=== PATIENT | male | born 1965 | race American Indian/Alaskan Native ===

== ENCOUNTER 2021-01-17 22:53 | Inpatient (IN) | payer OTHER ==
[2021-01-17] MEDS ORDERED: FUROSEMIDE 40 MG/4 ML INJ IV ONE (23:00)
[2021-01-17] MEDS ORDERED: MORPHINE 4 MG/1 ML INJ IV ONE (23:01)
[2021-01-17] MEDS ORDERED: ONDANSETRON 4 MG/2 ML INJ IV ONE (23:01)
--- NOTE | 2021-01-17 23:09 | Emergency Department Report ---
ED Shortness of Breath HPI - General Stated Complaint: RESPIRATORY DISTRESS Time Seen by Provider: 01/17/21 22:59 Source: EMS - History of Present Illness Initial Comments: Patient is 55-year-old male with history of hypertension. Patient brought to the emergency room via EMS from home for evaluation of acute respiratory distre ss. Patient symptoms started with shortness of breath. EMS stated that patient initial oxygen saturation was 95% and it dropped to 85%. Patient found to have a blood pressure of 270/180. Patient received nitroglycerin by EMS. Upon arrival to the ER patient in significant respiratory distress. Patient oxygen saturation is 72% on room air. Patient started on BiPAP, Lasix, morphine and started on nitroglycerin drip. MD Complaint: shortness of breath, chest pain -: Sudden, This afternoon - Related Data Home Medications Medication Instructions Recorded Confirmed Last Taken Ascorbic Acid [Vitamin C with Lexy 500 mg PO 2XW 01/18/21 01/18/21 Unknown Hips] Kzovtsm-Bbcfqgbij-Ddfm Tablet 1 tab PO 3XW 01/18/21 01/18/21 Unknown Cholecalciferol Vit D3 1,000 units PO 2XW 01/18/21 01/18/21 Unknown Ferrous Sulfate 99 mg PO 3XW 01/18/21 01/18/21 Unknown Magnesium 250 mg PO 2XW 01/18/21 01/18/21 Unknown Potassium 1 tab PO 3XW 01/18/21 01/18/21 Unknown Allergies Allergy/AdvReac Type Severity Reaction Status Date / Time No Known Allergies Allergy Verified 01/17/21 23:48 ED Review of Systems ROS: Stated complaint: RESPIRATORY DISTRESS Other details as noted in HPI Comment: All other systems reviewed and negative Constitutional: denies: chills, fever Respiratory: orthopnea, shortness of breath, SOB with exertion, SOB at rest. denies: cough, wheezing Cardiovascular: chest pain. denies: palpitations Gastrointestinal: denies: abdominal pain, nausea, vomiting Musculoskeletal: denies: back pain Neurological: confusion. denies: headache, weakness, numbness, paresthesias ED Past Medical Hx - Medications Home Medications: Home Medications Medication Instructions Recorded Confirmed Last Taken Type Ascorbic Acid [Vitamin C with Lexy 500 mg PO 2XW 01/18/21 01/18/21 Unknown History Hips] Ysokktz-Xeezvnvuy-Mkvq Tablet 1 tab PO 3XW 01/18/21 01/18/21 Unknown History Cholecalciferol Vit D3 1,000 units PO 2XW 01/18/21 01/18/21 Unknown History Ferrous Sulfate 99 mg PO 3XW 01/18/21 01/18/21 Unknown History Magnesium 250 mg PO 2XW 01/18/21 01/18/21 Unknown History Potassium 1 tab PO 3XW 01/18/21 01/18/21 Unknown History ED Physical Exam - General General appearance: alert, in distress (Severe respiratory distress, tachypneic with respiratory rate of 38) - Head Head exam: Present: atraumatic, normocephalic, normal inspection - Eye Eye exam: Present: normal appearance, PERRL - ENT ENT exam: Present: normal exam, normal orophraynx, mucous membranes moist - Neck Neck exam: Present: normal inspection, full ROM. Absent: tenderness, meningismus - Respiratory Respiratory exam: Present: respiratory distress, rales, accessory muscle use, decreased breath sounds. Absent: wheezes, rhonchi, stridor, prolonged expiratory - Cardiovascular Cardiovascular Exam: Present: tachycardia - GI/Abdominal GI/Abdominal exam: Present: soft, normal bowel sounds. Absent: distended, tenderness, guarding, rebound, rigid, organomegaly, mass, bruit, pulsatile mass, hernia - Back Exam Back exam: Present: normal inspection, full ROM. Absent: CVA tenderness (R), CVA tenderness (L) - Neurological Exam Neurological exam: Present: alert, altered - Psychiatric Psychiatric exam: Present: normal mood - Skin Skin exam: Present: warm, intact, normal color ED Course Vital Signs 01/17/21 01/17/21 01/17/21 23:00 23:02 23:05 Temperature 97.9 F Pulse Rate 157 H 155 H 130 H Respiratory 37 H 31 H Rate Blood Pressure 196/127 O2 Sat by Pulse 94 84 Oximetry 01/17/21 01/18/21 01/18/21 23:30 00:00 00:31 Temperature Pulse Rate 101 H Respiratory 28 H 29 H 23 Rate Blood Pressure 196/127 154/107 136/77 O2 Sat by Pulse 99 99 96 Oximetry 01/18/21 01/18/21 01/18/21 00:51 01:01 01:10 Temperature Pulse Rate 94 H Respiratory 23 22 25 H Rate Blood Pressure 131/74 141/78 139/73 O2 Sat by Pulse 94 95 99 Oximetry 01/18/21 01/18/21 01/18/21 01:21 01:31 01:41 Temperature Pulse Rate Respiratory 21 22 20 Rate Blood Pressure 139/73 129/76 141/65 O2 Sat by Pulse 96 98 96 Oximetry 01/18/21 01:51 Temperature Pulse Rate Respiratory 21 Rate Blood Pressure 141/65 O2 Sat by Pulse 98 Oximetry ED Medical Decision Making - Lab Data Result diagrams: 01/18/21 01:57 01/18/21 08:11 - EKG Data -: EKG Interpreted by Nv EKG shows normal: sinus rhythm Rate: tachycardia - EKG Data Interpretation: no acute changes - Radiology Data Radiology results: report reviewed - Medical Decision Making Patient is 55-year-old male with history of hypertension. Patient brought to the emergency room via EMS from home for evaluation of acute respiratory distress. Patient symptoms started with shortness of breath. EMS stated that patient initial oxygen saturation was 95% and it dropped to 85%. Patient found to have a blood pressure of 270/180. Patient received nitroglycerin by EMS. Upon arrival to the ER patient in significant respiratory distress. Patient oxygen saturation is 72% on room air. Patient started on BiPAP, Lasix, morphine and started on nitroglycerin drip. Patient blood pressure improved significantly to 157/102. Chest x-ray showed bilateral lower lobe consolidation concerning for pneumonia. Patient received Z osyn. Patient stated that he is feeling better. I discussed the patient with , he agreed to admit the patient to medical service for further management. Critical Care Time: Yes Critical care time in (mins) excluding proc time.: 30 Critical care attestation.: If time is entered above; I have spent that time in minutes in the direct care of this critically ill patient, excluding procedure time. ED Disposition Clinical Impression: Acute respiratory failure, New onset of congestive heart failure, Hypertensive emergency, Bilateral pneumonia Disposition: -09 OP ADMIT IP TO THIS HOSP Is pt being admited?: Yes Condition: Stable
[2021-01-17 23:21] LABS: Hematocrit 48.8 % (35.5-45.6); Hemoglobin 16.2 gm/dl (11.8-15.2); Mean Corpuscular HGB Conc 33 % (32-34); Mean Corpuscular Volume 87 fl (84-94)
[2021-01-17 23:22] LABS: Platelet Count 206 K/mm3 (140-440)
[2021-01-17 23:34] LABS: INR 0.99 (0.87-1.13)
[2021-01-17 23:35] LABS: Partial Thromboplastin Time 24.7 Sec. (24.2-36.6)
--- NOTE | 2021-01-17 23:41 | XRay Report ---
. XR chest 1V ap INDICATION / CLINICAL INFORMATION: Dyspnea COMPARISON: None available. FINDINGS: SUPPORT DEVICES: None. HEART / MEDIASTINUM: No significant abnormality. LUNGS / PLEURA : Significant bilateral lower lung zone consolidation. Costophrenic sulci are sharp. N o pneumothorax. ADDITIONAL FINDINGS: No significant additional findings. IMPRESSION: 1. Bilateral consolidation concerning for pneumonia. Signer Name: Shay Dorado MD Signed: 01/17/2021 11:37 PM Workstation Name: [id number]
[2021-01-17] MEDS ORDERED: NITROGLYCERIN DRIP 50 MG/250 ML BOTTLE IV SCH (23:45)
[2021-01-17] MEDS ORDERED: PIPERACILLIN/TAZOBACTAM 3.375 3.375 GM/50 ML BAG IV ONE (23:48)
[2021-01-17 23:57] LABS: Calcium 9.3 mg/dL (8.4-10.2)
[2021-01-18 00:01] LABS: Albumin 4.7 g/dL (3.9-5); Bilirubin,Direct 0.2 mg/dL (0-0.2)
[2021-01-18] MEDS ORDERED: MAGNESIUM HYDROXIDE (MOM) ORAL LIQD UDC PO PRN (00:38)
[2021-01-18] MEDS ORDERED: MORPHINE 2 MG/1 ML INJ IV PRN ×2 (00:38)
[2021-01-18] MEDS ORDERED: ONDANSETRON 4 MG/2 ML INJ IV PRN (00:38)
[2021-01-18 00:41] LABS: Chol/HDL Ratio 3.93 %
[2021-01-18] MEDS ORDERED: POTASSIUM CHLORIDE 10 MEQ 10 MEQ/100 ML BAG IV ONE ×2 (00:52→08:00)
--- NOTE | 2021-01-18 00:52 | History and Physical Report ---
History of Present Illness Date of examination: 01/18/21 Date of admission: 01/18/21 00:34 Chief complaint: Respiratory distress History of present illness: 55-year-old male with known history of hypertension brought into the emergency room by EMS today for acute onset of shortness of breath. Upon assessment, initial oxygen saturation was said to be about 95% or later dropped to 85%. Blood pressure was 270/180 mmHg. She was then given sublingual nitroglycerin by EMS. Upon arrival in the emergency room patient was in severe respiratory distress and oxygen saturation was about 72% on room air. Patient was then started on BiPAP, given Lasix, IV morphine and nitroglycerin drip. Patient indicates that he was diagnosed with hypertension sometime in July but has not been on any medication. He denies any headache or dizziness, denies any diaphoresis. Patient denies any chest pain, no nausea or vomiting and no abdominal pain. He has had some mild cough which is nonproductive. He denies any sick contacts and no recent travel. Denies any contact with anyone with COVID-19. Patient indicates that he has been fully vaccinated against COVID-19. He denies any illicit drug use and denies any history of tobacco abuse. Work-up in the emergency room, labs were significant for leukocytosis of 15.9, hypokalemia of 3.3, lactic acid of 5.1, troponin was slightly bumped at 0.039, lipid profile was grossly abnormal. Creatinine was also elevated at 1.8. Past History Past Medical History: hypertension Past Surgical History: No surgical history, Other (Colonoscopy in July with polyp removal.) Social history: no significant social history Family history: no significant family history Medications and Allergies Allergies Allergy/AdvReac Type Severity Reaction Status Date / Time No Known Allergies Allergy Verified 01/17/21 23:48 Active Meds: Active Medications Enoxaparin Sodium (Enoxaparin 40 Mg/0.4 Ml Inj) 40 mg SUB-Q QDAY@2200 ANAIS; Protocol Furosemide (Furosemide 40 Mg/4 Ml Inj) 40 mg IV BID@0600,1800 ANAIS Nitroglycerin/Dextrose (Tridil Drip 50mg/250ml) 50 mg in 250 mls @ 3 mls/hr IV TITR ANAIS; Protocol Last Titration: 01/17/21 23:48 Dose: 20 mcg/min, 6 mls/hr Documented by: Ceftriaxone Sodium (Rocephin/Ns 2 Gm/100 Ml) 2 gm in 100 mls @ 200 mls/hr IV Q24H ANAIS; Protocol Azithromycin (Zithromax/Ns) 500 mg in 250 mls @ 250 mls/hr IV Q24H ANAIS; Protocol Magnesium Hydroxide (Magnesium Hydroxide (Mom) Oral Liqd Udc) 30 ml PO Q4H PRN PRN Reason: Constipation Morphine Sulfate (Morphine 2 Mg/1 Ml Inj) 2 mg IV Q4H PRN PRN Reason: Pain, Moderate (4-6) Morphine Sulfate (Morphine 2 Mg/1 Ml Inj) 2 mg IV Q5MIN PRN PRN Reason: Chest Pain unrelieved by NTG Ondansetron HCl (Ondansetron 4 Mg/2 Ml Inj) 4 mg IV Q8H PRN PRN Reason: Nausea And Vomiting Sodium Chloride (Sodium Chloride 0.9% 10 Ml Flush Syringe) 10 ml IV BID ANAIS Sodium Chloride (Sodium Chloride 0.9% 10 Ml Flush Syringe) 10 ml IV PRN PRN PRN Reason: LINE FLUSH Review of Systems Constitutional: no fever, no chills Ears, nose, mouth and throat: no nasal congestion, no sore throat Cardiovascular: no chest pain, no palpitations Respiratory: shortness of breath, no cough, no wheezing Gastrointestinal: no abdominal pain, no nausea, no vomiting, no diarrhea Genitourinary Male: no dysuria, no hematuria, no nocturia Musculoskeletal: no neck pain, no low back pain Integumentary: no rash, no pruritis Neurological: no headaches, no confusion Psychiatric: no anxiety, no depression Endocrine: no polydipsia, no polyuria, no nocturia Exam - Constitutional Vitals: Temp Pulse Resp BP Pulse Ox 97.9 F 130 H 37 H 196/127 94 01/17/21 23:05 01/17/21 23:05 01/17/21 23:00 01/17/21 23:05 01/17/21 23:00 General appearance: Present: mild distress, well-nourished - EENT Eyes: Present: PERRL, EOM intact. Absent: scleral icterus ENT: hearing intact, clear oral mucosa, dentition normal - Neck Neck: Present: supple, normal ROM - Respiratory Respiratory effort: normal Respiratory: bilateral: rales (Few rales in bases.) - Cardiovascular Rhythm: regular Heart Sounds: Present: S1 & S2. Absent: systolic murmur, diastolic murmur - Extremities Extremities: no ischemia, pulses intact, pulses symmetrical, No edema, normal temperature, normal color, Full ROM Peripheral Pulses: within normal limits - Abdominal General gastrointestinal: Present: soft, non-tender, non-distended, normal bowel sounds. Absent: mass - Integumentary Integumentary: Present: clear, warm, dry. Absent: rash - Musculoskeletal Musculoskeletal: strength equal bilaterally - Psychiatric Psychiatric: appropriate mood/affect, intact judgment & insight, memory intact, cooperative - Neurologic Neurologic: CNII-XII intact, no focal deficits, moves all extremities HEART Score - HEART Score Troponin: Troponin T 0.039 ng/mL (0.00-0.029) H 01/17/21 23:09 Results - Labs CBC & Chem 7: 01/17/21 23:09 01/17/21 23:09 Labs: Abnormal lab results 01/17/21 01/17/21 01/17/21 Range/Units 23:09 23:09 23:09 WBC 15.9 H (4.5-11.0) K/mm3 RBC 5.60 H (3.65-5.03) M/mm3 Hgb 16.2 H (11.8-15.2) gm/dl Hct 48.8 H (35.5-45.6) % RDW 16.0 H (13.2-15.2) % Potassium 3.3 L (3.6-5.0) mmol/L Carbon Dioxide 21 L (22-30) mmol/L BUN 21 H (9-20) mg/dL Creatinine 1.8 H (0.8-1.3) mg/dL Glucose 238 H (75-100) mg/dL Lactic Acid 5.10 H* (0.7-2.0) mmol/L AST (5-40) units/L Troponin T 0.039 H (0.00-0.029) ng/mL NT-Pro-B Natriuret Pep (0-900) pg/mL Triglycerides 355 H (2-149) mg/dL Cholesterol 240 H (50-199) mg/dL LDL Cholesterol Direct 137 H (50-130) mg/dL HDL Cholesterol 61 H (40-59) mg/dL 01/17/21 01/17/21 01/18/21 Range/Units 23:09 23:09 00:06 WBC (4.5-11.0) K/mm3 RBC (3.65-5.03) M/mm3 Hgb (11.8-15.2) gm/dl Hct (35.5-45.6) % RDW (13.2-15.2) % Potassium (3.6-5.0) mmol/L Carbon Dioxide (22-30) mmol/L BUN (9-20) mg/dL Creatinine (0.8-1.3) mg/dL Glucose (75-100) mg/dL Lactic Acid 2.20 H* (0.7-2.0) mmol/L AST 47 H (5-40) units/L Troponin T (0.00-0.029) ng/mL NT-Pro-B Natriuret Pep 4538 H (0-900) pg/mL Triglycerides (2-149) mg/dL Cholesterol (50-199) mg/dL LDL Cholesterol Direct (50-130) mg/dL HDL Cholesterol (40-59) mg/dL Assessment and Plan - Patient Problems (1) Hypertensive emergency Current Visit: Yes Status: Acute Plan to address problem: Patient admitted into the intensive care unit and started on nitroglycerin drip. We will monitor vitals closely. (2) Acute respiratory failure Current Visit: Yes Status: Acute Plan to address problem: Possibly secondary to new onset congestive heart failure. Patient currently on BiPAP. We will keep oxygen saturation greater equal to 94%. We await further evaluation by freight inspector. (3) New onset of congestive heart failure Current Visit: Yes Status: Acute Plan to address problem: We will monitor daily weights and also monitor inputs and output. Patient scheduled for echocardiogram. Consult placed to cardiology for evaluation. (4) Hypokalemia Current Visit: Yes Status: Acute Plan to address problem: We will replete potassium and monitor chemistry. (5) Bilateral pneumonia Current Visit: Yes Status: Acute Plan to address problem: Patient placed on empiric IV antibiotics. Will await culture results. (6) Elevated troponin Current Visit: Yes Status: Acute Plan to address problem: Patient has denied any chest pain. Possibly troponin leak. We will trend cardiac enzymes. We will await further evaluation by cardiology. (7) Hyperlipidemia Current Visit: Yes Status: Acute Plan to address problem: Dietary consult requested. Meanwhile we will place patient on statin and monitor lipid profile. (8) SCHUYLER (acute kidney injury) Current Visit: Yes Status: Acute Plan to address problem: Baseline creatinine unknown. Consult placed to nephrology for evaluation. Meanwhile we will request a renal ultrasound. (9) DVT prophylaxis Current Visit: Yes Status: Acute Plan to address problem: Patient placed on subcutaneous Lovenox. (10) Full code status Current Visit: Yes Status: Acute Plan to address problem: Patient is full code.
[2021-01-18 01:04] LABS: Total Cells Counted 100
[2021-01-18 01:05] LABS: Giant Platelets Rare; Platelet Clumps Rare; RBC Morphology Normal
[2021-01-18] MEDS ORDERED: traMADol 50 MG TAB PO PRN (01:43)
[2021-01-18] MEDS ORDERED: ACETAMINOPHEN 325 MG TAB PO PRN (01:43)
[2021-01-18 02:11] LABS: Basophils # (Auto) 0.1 K/mm3 (0.0-0.1); Basophils % (Auto) 0.8 % (0.0-1.8); Eosinophils % (Auto) 0.3 % (0.0-4.3); Hemoglobin 14.5 gm/dl (11.8-15.2); Lymphocytes # (Auto) 1.2 K/mm3 (1.2-5.4); Lymphocytes % (Auto) 7.7 % (13.4-35.0); Mean Corpuscular HGB Conc 33 % (32-34); Mean Corpuscular Volume 85 fl (84-94); Monocytes # (Auto) 0.9 K/mm3 (0.0-0.8); Monocytes % (Auto) 5.8 % (0.0-7.3); Platelet Count 183 K/mm3 (140-440); Red Blood Count 5.17 M/mm3 (3.65-5.03); Red Cell Distribution Width 15.5 % (13.2-15.2)
[2021-01-18] MEDS ORDERED: MORPHINE 4 MG/1 ML INJ ONE (02:52)
[2021-01-18] MEDS ORDERED: FUROSEMIDE 40 MG/4 ML INJ IV SCH (06:00)
[2021-01-18] MEDS: AZITHROMYCIN/NS 500 MG/250 ML 500 MG/250 ML BAG IV SCH (08:24)
[2021-01-18] MEDS: cefTRIAXone/NS 2 GM/100 ML 2 GM/100 ML BAG IV SCH (08:24)
[2021-01-18 09:45] LABS: Calcium 9.5 mg/dL (8.4-10.2)
[2021-01-18] MEDS: POTASSIUM CHLORIDE ER 20 MEQ TAB PO SCH (10:53)
[2021-01-18] MEDS: ASPIRIN 81 MG TAB CHEW PO SCH (10:53)
--- NOTE | 2021-01-18 12:17 | Consultation ---
History of Present Illness Consult date: 01/18/21 Requesting physician: GAETANO CISNEROS Reason for consult: other (Hypertensive Emergency; Acute Hypoxemicv Respiratory Failure) History of present illness: PULMONARY/CCM CONSULT NOTE (Full dictation # [id number]) Please see dictated notes for full details Past History Past Medical History: hypertension Past Surgical History: No surgical history, Other (Colonoscopy in July with polyp removal.) Social history: no significant social history Family history: no significant family history Medications and Allergies Allergies Allergy/AdvReac Type Severity Reaction Status Date / Time No Known Allergies Allergy Verified 01/17/21 23:48 Home Medications Medication Instructions Recorded Confirmed Last Taken Type Ascorbic Acid [Vitamin C with Lexy 500 mg PO 2XW 01/18/21 01/18/21 Unknown History Hips] Pltezve-Lkrjkvinr-Ukrl Tablet 1 tab PO 3XW 01/18/21 01/18/21 Unknown History Cholecalciferol Vit D3 1,000 units PO 2XW 01/18/21 01/18/21 Unknown History Ferrous Sulfate 99 mg PO 3XW 01/18/21 01/18/21 Unknown History Magnesium 250 mg PO 2XW 01/18/21 01/18/21 Unknown History Potassium 1 tab PO 3XW 01/18/21 01/18/21 Unknown History Active Meds: Active Medications Acetaminophen (Acetaminophen 325 Mg Tab) 650 mg PO Q6H PRN PRN Reason: Pain, Mild (1-3) Aspirin (Aspirin 81 Mg Tab Chew) 81 mg PO QDAY COUNTS INCLUDE 234 BEDS AT THE [facility] Last Admin: 01/18/21 10:53 Dose: 81 mg Documented by: Atorvastatin Calcium (Atorvastatin 40 Mg Tab) 80 mg PO QHS ANAIS Enoxaparin Sodium (Enoxaparin 40 Mg/0.4 Ml Inj) 40 mg SUB-Q QDAY@2200 COUNTS INCLUDE 234 BEDS AT THE [facility]; Protocol Furosemide (Furosemide 40 Mg/4 Ml Inj) 40 mg IV BID@0600,1800 COUNTS INCLUDE 234 BEDS AT THE [facility] Last Admin: 01/18/21 06:22 Dose: 40 mg Documented by: Nitroglycerin/Dextrose (Tridil Drip 50mg/250ml) 50 mg in 250 mls @ 3 mls/hr IV TITR COUNTS INCLUDE 234 BEDS AT THE [facility]; Protocol Last Titration: 01/18/21 07:00 Dose: 0 mcg/min, 0 mls/hr Documented by: Ceftriaxone Sodium (Rocephin/Ns 2 Gm/100 Ml) 2 gm in 100 mls @ 200 mls/hr IV Q24H COUNTS INCLUDE 234 BEDS AT THE [facility]; Protocol Last Infusion: 01/18/21 09:00 Dose: Infused Documented by: Azithromycin (Zithromax/Ns) 500 mg in 250 mls @ 250 mls/hr IV Q24H COUNTS INCLUDE 234 BEDS AT THE [facility]; Pro tocol Last Infusion: 01/18/21 09:35 Dose: Infused Documented by: Magnesium Hydroxide (Magnesium Hydroxide (Mom) Oral Liqd Udc) 30 ml PO Q4H PRN PRN Reason: Constipation Morphine Sulfate (Morphine 2 Mg/1 Ml Inj) 2 mg IV Q4H PRN PRN Reason: Pain, Moderate (4-6) Morphine Sulfate (Morphine 2 Mg/1 Ml Inj) 2 mg IV Q5MIN PRN PRN Reason: Chest Pain unrelieved by NTG Ondansetron HCl (Ondansetron 4 Mg/2 Ml Inj) 4 mg IV Q8H PRN PRN Reason: Nausea And Vomiting Potassium Chloride (Potassium Chloride Er 20 Meq Tab) 20 meq PO QDAY COUNTS INCLUDE 234 BEDS AT THE [facility] Last Admin: 01/18/21 10:53 Dose: 20 meq Documented by: Sodium Chloride (Sodium Chloride 0.9% 10 Ml Flush Syringe) 10 ml IV BID COUNTS INCLUDE 234 BEDS AT THE [facility] Last Admin: 01/18/21 11:28 Dose: 10 ml Documented by: Sodium Chloride (Sodium Chloride 0.9% 10 Ml Flush Syringe) 10 ml IV PRN PRN PRN Reason: LINE FLUSH Tramadol HCl (Tramadol 50 Mg Tab) 50 mg PO Q6H PRN PRN Reason: Pain, Moderate (4-6) Physical Examination Vital signs: Vital Signs Pulse Resp Pulse Ox 157 H 37 H 94 01/17/21 23:00 01/17/21 23:00 01/17/21 23:00 Results - Laboratory Findings CBC and BMP: 01/18/21 01:57 01/18/21 08:11 PT/INR, D-dimer PT 13.6 Sec. (12.2-14.9) 01/17/21 23:09 INR 0.99 (0.87-1.13) 01/17/21 23:09 Abnormal lab findings: Abnormal Labs 01/17/21 01/17/21 01/17/21 23:09 23:09 23:09 WBC 15.9 H RBC 5.60 H Hgb 16.2 H Hct 48.8 H RDW 16.0 H Lymph % (Auto) [place] # (Auto) Seg Neutrophils % Lymphocytes % (Manual) 44.0 H Seg Neutrophils # Lymphocytes # (Manual) 7.0 H Eosinophils # (Manual) 0.6 H Basophils # (Manual) 0.2 H Potassium 3.3 L Carbon Dioxide 21 L BUN 21 H Creatinine 1.8 H Glucose 238 H Lactic Acid 5.10 H* AST Troponin T 0.039 H NT-Pro-B Natriuret Pep Triglycerides 355 H Cholesterol 240 H LDL Cholesterol Direct 137 H HDL Cholesterol 61 H 01/17/21 01/17/21 01/18/21 23:09 23:09 00:06 WBC RBC Hgb Hct RDW Lymph % (Auto) [place] # (Auto) Seg Neutrophils % Lymphocytes % (Manual) Seg Neutrophils # Lymphocytes # (Manual) Eosinophils # (Manual) Basophils # (Manual) Potassium Carbon Dioxide BUN Creatinine Glucose Lactic Acid 2.20 H* AST 47 H Troponin T NT-Pro-B Natriuret Pep 4538 H Triglycerides Cholesterol LDL Cholesterol Direct HDL Cholesterol 01/18/21 01/18/21 01/18/21 01:57 01:57 01:57 WBC 15.2 H RBC 5.17 H Hgb Hct RDW 15.5 H Lymph % (Auto) 7.7 L [place] # (Auto) 0.9 H Seg Neutrophils % 85.4 H Lymphocytes % (Manual) Seg Neutrophils # 13.0 H Lymphocytes # (Manual) Eosinophils # (Manual) Basophils # (Manual) Potassium Carbon Dioxide BUN Creatinine Glucose Lactic Acid 2.10 H* AST Troponin T 0.083 H D NT-Pro-B Natriuret Pep Triglycerides Cholesterol LDL Cholesterol Direct HDL Cholesterol 01/18/21 01/18/21 01/18/21 08:11 08:11 08:11 WBC RBC Hgb Hct RDW Lymph % (Auto) [place] # (Auto) Seg Neutrophils % Lymphocytes % (Manual) Seg Neutrophils # Lymphocytes # (Manual) Eosinophils # (Manual) Basophils # (Manual) Potassium 3.5 L Carbon Dioxide BUN 25 H Creatinine 1.8 H Glucose Lactic Acid 2.50 H* AST Troponin T 0.065 H D NT-Pro-B Natriuret Pep Triglycerides Cholesterol LDL Cholesterol Direct HDL Cholesterol
--- NOTE | 2021-01-18 12:36 | Ultrasound Report ---
ULTRASOUND RENAL INDICATION / CLINICAL INFORMATION: SCHUYLER. ARF. COMPARISON: None available. FINDINGS: RIGHT KIDNEY: Length = 11.3 cm. - Echogenicity: Normal. - Cortical Thickness: Normal. - Hydronephrosis: None. - Cyst / Mass: None. - Stones: None seen. LEFT KIDNEY: Length = 10.6 cm. - Echogenicity: Normal. - Cortical Thickness: Normal. - Hydronephrosis: None. - Cyst / Mass: None. - Stones: None seen. URINARY BLADDER: No significant abnormality. FREE FLUID: None. ADDITIONAL FINDINGS: None. IMPRESSION: 1. No significant abnormality of the kidneys or urinary bladder. Scribed by: Tamar Mcdermott RDMS, RVT Scribed: 01/18/2021 10:14 AM I have reviewed the images, agree with this report, and edited this report as needed. Signer Name: Eagle Andino MD Signed: 01/18/2021 12:32 PM Workstation Name: [id number]
--- NOTE | 2021-01-18 12:43 | Event Note ---
Date: 01/18/21 Patient seen and examined This is the second visit after midnight Vitals noted and appears to be stable Patient denies any chest pain but has short of breath Appears in no acute distress, S1-S2 positive, bilateral respiratory rhonchi This is an 55-year-old male with known history of hypertension and noncompliant with his medications brought into the emergency room by EMS for acute onset of shortness of breath. Blood pressure was 270/180 mmHg. Upon arrival in the emergency room patient was in severe respiratory distress and oxygen saturation was about 72% on room air. Patient was then started on BiPAP, given Lasix, IV morphine and nitroglycerin drip. He has been fully vaccinated against COVID-19. labs were significant for leukocytosis of 15.9, hypokalemia of 3.3, lactic acid of 5.1, troponin was slightly bumped at 0.039, lipid profile was grossly abnormal. Creatinine was also elevated at 1.8. Continue current management and plan as dictated in the HPI Patient is off nitroglycerin drip now, continue IV Lasix, wait for abdominal ultrasound and 2D echocardiogram report Continue to follow BMP, transfer to telemetry, follow cardiology and nephrology recommendations It took me about 28 minutes to reevaluate and reasses this patient, discussed with RN/CM, review medical documents, lab results, imaging, medication list and placing order.
[2021-01-18] MEDS ORDERED: amLODIPine 10 MG TAB PO SCH (13:00)
[2021-01-18] MEDS: HEPARIN 5,000 UNIT/1 ML VIAL SUB-Q SCH ×2 (13:17→22:08)
--- NOTE | 2021-01-18 15:37 | Consultation ---
History of Present Illness Consult date: 01/18/21 Requesting physician: GAETANO CISNEROS Consult reason: congestive heart failure, hypertension History of present illness: This patient is a 55-year-old male with a significant history of hypertension. He is previously unknown to our practice. Patient presents to [facility] ER via EMS for hypertensive emergency and respiratory distress. EMS reports patient was found and severe respiratory distress with initial O2 sat 72% and reported blood pressure of 270/180. Patient was subsequently initiated on CPAP and NTG gtt. cardiology is consulted for hypertension and elevated troponins. At time of interview hypertension is significantly improved and patient denies any chest pain, shortness of breath, weakness, dizziness, abdominal pain, N/V/D, recent illness or known exposures. Patient also reports he is COVID-19 vaccinated. He is not currently followed by cardiology nor PCP. Past History Past Medical History: hypertension, other (See HPI) Past Surgical History: No surgical history, Other (Colonoscopy in July with polyp removal.) Social history: no significant social history Family history: no significant family history Medications and Allergies Allergies Allergy/AdvReac Type Severity Reaction Status Date / Time No Known Allergies Allergy Verified 01/17/21 23:48 Home Medications Medication Instructions Recorded Confirmed Last Taken Type Ascorbic Acid [Vitamin C with Lexy 500 mg PO 2XW 01/18/21 01/18/21 Unknown History Hips] [id number] Tablet 1 tab PO 3XW 01/18/21 01/18/21 Unknown History Cholecalciferol Vit D3 1,000 units PO 2XW 01/18/21 01/18/21 Unknown History Ferrous Sulfate 99 mg PO 3XW 01/18/21 01/18/21 Unknown History Magnesium 250 mg PO 2XW 01/18/21 01/18/21 Unknown History Potassium 1 tab PO 3XW 01/18/21 01/18/21 Unknown History Active Meds: Active Medications Acetaminophen (Acetaminophen 325 Mg Tab) 650 mg PO Q6H PRN PRN Reason: Pain, Mild (1-3) Amlodipine Besylate (Amlodipine 10 Mg Tab) 10 mg PO QDAY [facility] Last Admin: 01/18/21 13:16 Dose: 10 mg Documented by: Aspirin (Aspirin 81 Mg Tab Chew) 81 mg PO QDAY [facility] Last Admin: 01/18/21 10:53 Dose: 81 mg Documented by: Atorvastatin Calcium (Atorvastatin 40 Mg Tab) 80 mg PO QHS [facility] Famotidine (Famotidine 20 Mg Tab) 20 mg PO QHS [facility] Heparin Sodium (Porcine) (Heparin 5,000 Unit/1 Ml Vial) 5,000 unit SUB-Q Q8HR [facility] Last Admin: 01/18/21 13:17 Dose: 5,000 unit Documented by: Nitroglycerin/Dextrose (Tridil Drip 50mg/250ml) 50 mg in 250 mls @ 3 mls/hr IV TITR [facility]; Protocol Last Titration: 01/18/21 07:00 Dose: 0 mcg/min, 0 mls/hr Documented by: Ceftriaxone Sodium (Rocephin/Ns 2 Gm/100 Ml) 2 gm in 100 mls @ 200 mls/hr IV Q24H [facility]; Protocol Last Infusion: 01/18/21 09:00 Dose: Infused Documented by: Azithromycin (Zithromax/Ns) 500 mg in 250 mls @ 250 mls/hr IV Q24H [facility]; Protocol Last Infusion: 01/18/21 09:35 Dose: Infused Documented by: Magnesium Hydroxide (Magnesium Hydroxide (Mom) Oral Liqd Udc) 30 ml PO Q4H PRN PRN Reason: Constipation Morphine Sulfate (Morphine 2 Mg/1 Ml Inj) 2 mg IV Q4H PRN PRN Reason: Pain, Moderate (4-6) Morphine Sulfate (Morphine 2 Mg/1 Ml Inj) 2 mg IV Q5MIN PRN PRN Reason: Chest Pain unrelieved by NTG Ondansetron HCl (Ondansetron 4 Mg/2 Ml Inj) 4 mg IV Q8H PRN PRN Reason: Nausea And Vomiting Potassium Chloride (Potassium Chloride Er 20 Meq Tab) 20 meq PO QDAY [facility] Last Admin: 01/18/21 10:53 Dose: 20 meq Documented by: Sodium Chloride (Sodium Chloride 0.9% 10 Ml Flush Syringe) 10 ml IV BID [facility] Last Admin: 01/18/21 11:28 Dose: 10 ml Documented by: Sodium Chloride (Sodium Chloride 0.9% 10 Ml Flush Syringe) 10 ml IV PRN PRN PRN Reason: LINE FLUSH Tramadol HCl (Tramadol 50 Mg Tab) 50 mg PO Q6H PRN PRN Reason: Pain, Moderate (4-6) Review of Systems Constitutional: no weight loss, no weight gain, no fever, no chills, no sweats Ears, nose, mouth and throat: no ear pain, no ear discharge, no nose pain, no nasal congestion, no nasal discharge Cardiovascular: shortness of breath, high blood pressure, no chest pain, no orthopnea, no palpitations, no rapid/irregular heart beat, no edema, no syncope, no lightheadedness, no dyspnea on exertion, no paroxysmal nocturnal dyspnea, no claudication, no leg edema, no decreased exercise tolerance Respiratory: shortness of breath, no cough, no cough with sputum, no hemoptysis, no dyspnea on exertion Gastrointestinal: no abdominal pain, no nausea, no vomiting, no diarrhea Genitourinary Male: no flank pain Musculoskeletal: no neck stiffness, no neck pain, no shooting arm pain, no arm numbness/tingling, no low back pain, no shooting leg pain Integumentary: no rash, no pruritis, no redness, no sores, no wounds Neurological: no head injury, no paralysis, no weakness, no parathesias, no numbness, no tingling, no seizures, no syncope Psychiatric: no anxiety Endocrine: no cold intolerance, no heat intolerance Hematologic/Lymphatic: no easy bruising, no easy bleeding Allergic/Immunologic: no urticaria Physical Examination Last Vital Signs Temp 98.6 F 01/18/21 12:00 Pulse 84 01/18/21 13:16 Resp 21 01/18/21 13:00 BP 145/83 01/18/21 13:16 Pulse Ox 98 01/18/21 13:00 General appearance: no acute distress HEENT: Positive: PERRL, Normocephaly, Mucus Membranes Moist Neck: Positive: neck supple, trachea midline Cardiac: Positive: Reg Rate and Rhythm, S1/S2 Lungs: Positive: clear to auscultation, Normal Breath Sounds Neuro: Positive: Grossly Intact Abdomen: Positive: Unremarkable, Soft Skin: Negative: Rash, Wound Extremities: Present: upper extr. pulses, lower extr. pulses. Absent: edema Results 01/18/21 01:57 01/18/21 08:11 Cardiac Enzymes 01/17/21 Range/Units 23:09 AST 47 H (5-40) units/L Coagulation 01/17/21 Range/Units 23:09 PT 13.6 (12.2-14.9) Sec. INR 0.99 (0.87-1.13) APTT 24.7 (24.2-36.6) Sec. Lipids 01/17/21 Range/Units 23:09 Triglycerides 355 H (2-149) mg/dL Cholesterol 240 H (50-199) mg/dL HDL Cholesterol 61 H (40-59) mg/dL Cholesterol/HDL Ratio 3.93 % CBC 01/17/21 01/18/21 Range/Units 23:09 01:57 WBC 15.9 H 15.2 H (4.5-11.0) K/mm3 RBC 5.60 H 5.17 H (3.65-5.03) M/mm3 Hgb 16.2 H 14.5 (11.8-15.2) gm/dl Hct 48.8 H 44.0 (35.5-45.6) % Plt Count 206 183 (140-440) K/mm3 Lymph # (Auto) Director Print 1.2 [place] # (Auto) 0.9 H (0.0-0.8) K/mm3 Eos # (Auto) 0.0 (0.0-0.4) K/mm3 Baso # (Auto) 0.1 (0.0-0.1) K/mm3 Comprehensive Metabolic Panel 01/17/21 01/17/21 01/18/21 Range/Units 23:09 23:09 08:11 Sodium 140 143 (137-145) mmol/L Potassium 3.3 L 3.5 L (3.6-5.0) mmol/L Chloride 99.7 100.7 (98-107) mmol/L Carbon Dioxide 21 L 27 (22-30) mmol/L BUN 21 H 25 H (9-20) mg/dL Creatinine 1.8 H 1.8 H (0.8-1.3) mg/dL Glucose 238 H 98 (75-100) mg/dL Calcium 9.3 9.5 (8.4-10.2) mg/dL Direct Bilirubin 0.2 (0-0.2) mg/dL Indirect Bilirubin 0.3 mg/dL AST 47 H (5-40) units/L ALT 36 (7-56) units/L Alkaline Phosphatase 104 (35-129) units/L Total Protein 7.4 (6.3-8.2) g/dL Albumin 4.7 (3.9-5) g/dL - Imaging and Cardiology Echo: pending EKG: report reviewed, image reviewed EKG interpretations - Telemetry EKG Rhythm: SVT - EKG Sinus rhythms and dysrhythmias: sinus rhythm Assessment and Plan Hypertensive emergency * Patient is currently normotensive * Renal ultrasound is normal Acute respiratory failure in setting of acute HFrEF * Currently maintaining SPO2 with supplemental oxygen via nasal cannula 4 L/min * Echocardiogram is pending * GDMT. No JAYCEE/ARB due to SCHUYLER * Lasix 40 mg IV daily. Strict I/O's. * Optimize antihypertensive regimen: Discontinue amlodipine, initiate Coreg 12.5 mg twice daily, initiate hydralazine 10 mg 3 times daily. Elevated troponin * Troponins are elevated, subacute and nonspecific. Continue to trend CE's SCHUYLER * No ACEI/ARB in setting of SCHUYLER. Avoid nephrotoxic agents We will follow This patient was seen in conjunction with Dr Campa who agrees with this ass essment and plan of care - Patient Problems (1) Hypertensive emergency Current Visit: Yes Status: Acute Plan to address problem: (2) Acute respiratory failure Current Visit: Yes Status: Acute Plan to address problem: (3) New onset of congestive heart failure Current Visit: Yes Status: Acute Plan to address problem: (4) Hypokalemia Current Visit: Yes Status: Acute Plan to address problem: (5) Bilateral pneumonia Current Visit: Yes Status: Acute Plan to address problem: (6) Elevated troponin Current Visit: Yes Status: Acute Plan to address problem: (7) Hyperlipidemia Current Visit: Yes Status: Acute Plan to address problem: (8) SCHUYLER (acute kidney injury) Current Visit: Yes Status: Acute Plan to address problem: (9) DVT prophylaxis Current Visit: Yes Status: Acute Plan to address problem:
[2021-01-18] MEDS: carvediloL 12.5 MG TAB PO SCH ×2 (17:31→22:09)
[2021-01-18] MEDS: hydrALAZINE 10 MG TAB PO SCH ×2 (17:32→22:30)
[2021-01-18] MEDS: FUROSEMIDE 40 MG/4 ML INJ IV SCH (17:32)
[2021-01-18 18:24] LABS: Creatinine,Urine 67.1 mg/dL (0.1-20.0)
--- NOTE | 2021-01-18 21:14 | Consultation ---
DATE OF CONSULTATION: 01/18/2021 PULMONARY CRITICAL CARE CONSULT NOTE CONSULTING PHYSICIAN: Dr. Gui Ortiz. REASON FOR CONSULTATION: Acute hypoxemic respiratory failure. CHIEF COMPLAINT AND HISTORY OF PRESENT ILLNESS: The patient is a now 55-year-old male with past medical history significant only for hypertension, he denies history of any known cardiomyopathy otherwise, not on any chronic medications at home and takes daily vitamins. He was brought into the Emergency Room by emergency medical services after he described an acute shortness of breath. He denied any cough or hemoptysis. He denied any significant orthopnea. He denied any lower extremity swelling. He denied any paroxysmal nocturnal dyspnea. In the Emergency Room, he was found to have O2 sats of 85%. Blood pressure was, however, 270/180 mmHg. It was treated with sublingual nitroglycerin. In the ER, his sats dropped as low as 72%. He was placed on continuous bilevel positive airway pressure, started on Lasix IV and started on nitroglycerin drip and admitted to the intensive care unit where I stopped by to see him. When I stopped by to see him, was feeling better. He was just about to be liberated from the BiPAP machine, but still requiring a high FiO2 of 45%. He denied any headache. He denied any fevers. He denied any nausea, vomiting or overt aspiration. He denied any sick contacts. He also denies any contact with any known person with COVID-19. He does have a history of tobacco use. He states he mostly will smoke cigarillos and describes himself as less than half a pack a day smoker and states he does not actively smoke daily. This really is as much of the history of presentation as I have. PAST MEDICAL HISTORY: Hypertension. PAST SURGICAL HISTORY: Nothing really, but he does mention a colonoscopy in 07/2020 with removal of a polyp. MEDICATIONS: He was on at the time I stopped by to see him, according to the medication administration record included: Tylenol 650 mg p.o. q. 6 hours p.r.n. mild pain or fevers, amlodipine 10 mg p.o. daily, aspirin 81 mg p.o. daily, Lipitor 80 mg p.o. at bedtime, Zithromax 500 mg IV daily, Rocephin 2 grams IV daily, Lasix 40 mg IV b.i.d., heparin 5000 units subQ q. 8 hours, morphine sulfate 2 mg IV every 4 hours p.r.n. moderate pain, nitroglycerin drip at 10 mcg per minute, Zofran 4 mg IV q. 8 hours p.r.n. nausea and vomiting, potassium chloride 20 mEq p.o. daily and tramadol 50 mg p.o. q. 6 hours p.r.n. moderate pain. ALLERGIES: No known drug allergies. DIET: Well built gentleman. Denies acute weight loss or gain in the preceding few weeks to months. FAMILY AND SOCIAL HISTORY: Lives in the community. Denies alcohol or illicit drug use or abuse. He does smoke tobacco occasionally. FAMILY HISTORY: Otherwise, noncontributory. REVIEW OF SYSTEMS: No loss of consciousness. No new onset seizures. No new onset focal weakness. Denies gross hematochezia or melena. Denies gross hematuria or dysuria. No hematemesis, no hemoptysis. He denies any palpitations. Denies heat or cold intolerance. Denies polydipsia, polyuria. Complete 13 system review of systems obtained. Pertinent positives and/or negatives as in body of history above, otherwise noncontributory. PHYSICAL EXAMINATION: VITAL SIGNS: On presentation, he was afebrile, temperature of 97.9 degrees Fahrenheit, pulse of 157, respiratory rate of 37, blood pressure as high as 270/180, O2 sats 94%, inspired oxygen concentration at that time was not recorded. When I stopped by to see him, he was on bilevel positive airway pressure ventilation therapy, BiPAP 14, EPAP 8, backup rate of 20. FiO2 down to about 50. GENERAL: He is a middle-aged male. Normocephalic, atraumatic, resting in bed with mildly increased respiratory effort at rest. HEAD, EYES, EARS, NOSE AND THROAT: Anicteric. No conjunctival erythema. Oropharynx was moist. NECK: No gross jugular venous distention, no thyromegaly. Grossly, there were no palpable lymph nodes in the supraclavicular or submandibular lymph node chains. LUNGS: Auscultation of both lung singletary believe diminished bibasilar air entry. Inspiratory rales bilaterally. No wheezing, right greater than left. HEART: Sounds 1 and 2 are heard, regular rate and rhythm at the time of my evaluation without overt rubs or murmurs. ABDOMEN: Soft, full, bowel sounds are positive, nontender, no palpable hepatosplenomegaly. EXTREMITIES: Without overt digital clubbing or cyanosis. No pedal edema. Pedal pulses are 2+ bilaterally. NEUROLOGIC: Pupils are equal, round, about 4 mm, reactive to light. Extraocular muscle movements are intact. He moves all 4 extremities spontaneously. SKIN: Normal turgor without overt cellulitis. He does have a rash to the left inner pringle. He states that this has been there since for years. He does not know what brought it on. He really has no symptoms from it. PSYCHIATRIC: His mood was normal and his affect was appropriate. He had intact judgment and insight. LABORATORY DATA: From my review are as follows: Admission white cell count 15,900, hemoglobin 16.2, hematocrit 48.8, platelet count 206. No band forms on the manual differential. INR is 0.99. Serum sodium was 140, potassium 3.3, chloride 100, bicarbonate 21, BUN 21, creatinine 1.8, glucose was 238. Lactic acid level was 5.10. Troponin peaked at 0.083, down to 0.065. Cholesterol 240, LDL cholesterol 137. His lactic acid level is down to 2.5. Two sets of blood cultures are no growth to date. A 2D echo has been done, results are pending. Chest x-ray shows right lower lobe predominant infiltrates. He does have a faint infiltrate in the left costophrenic angle. No pleural effusions that I can see. Difficult to define the cardiac borders, but he may have borderline cardiomegaly, no gross pneumothorax, no gross bony fracture. Ultrasound of the kidneys and bladder are really unremarkable. A 2D echo has been done, but the result is pending. ASSESSMENT: 1. Acute hypoxemic respiratory failure, on noninvasive ventilation. 2. Hypertensive emergency, likely cause. 3. Flash pulmonary edema. 4. Likely community-acquired pneumonia. 5. Possible heart failure with reduced ejection fraction. 6. Non-ST elevation myocardial infarction. 7. Acute kidney injury. 8. History of hypertension. 9. Leukocytosis. 10. Lactic acidosis. 11. Hyperlipidemia. 12. Tobacco use disorder. PLAN: I do feel if there is significant congestive heart failure here, this is probably related to the flash pulmonary edema. I am bothered that we are really dealing with a community-acquired pneumonia also and this gentleman if anything may need volume resuscitation. His lactic acid level is down to 2.5, but still remains on the high side. I will empirically discontinue the b.i.d. IV Lasix. I will await the result of the 2D echo. I will go ahead and get a stat procalcitonin level. If that is not significantly elevated, I will treat this mostly like a community-acquired pneumonia and do some volume resuscitation. I will also get urine electrolytes, urine creatinine, urine sodium, calculated fractional excretion of sodium. I will see if this may be a prerenal azotemia. I believe a nephrology consult has been placed and if one has not in order, it has been placed. I will be adding GI prophylaxis. We will continue his DVT prophylaxis with Pepcid. We will continue empiric community-acquired pneumonia therapy. I will change bilevel positive airway pressure ventilation therapy to p.r.n. We will follow the official 2D echo result. Flu and pneumonia vaccination will be addressed per protocol. Nitroglycerin drip was going to be weaned off acutely. I do feel we will be able to get him to the telemetry floor. Thank you very much for the consult. We will follow along and make further recommendations as picture progresses/becomes clearer. TID: [id number] RECEIPT: [id number] CAMILO/STEPHEN
[2021-01-18] MEDS ORDERED: ENOXAPARIN 40 MG/0.4 ML INJ SUB-Q SCH (22:00)
[2021-01-18] MEDS: FAMOTIDINE 20 MG TAB PO SCH (22:08)
--- NOTE | 2021-01-18 22:36 | Consultation ---
History of Present Illness - Reason for Consult Consult date: 01/18/21 chronic renal failure Requesting physician: GAETANO CISNEROS - History of Present Illness This is a 55 yo M with past medical history of hypertension who presents to ER with complaints of SOB. In ER O2 sat was as low as 72% on RA, requiring BiPAP, BP was as high as 270/180mmHg and patient was treated with IV lasix, nitro gtt. CXR showed bilateral consolidation consistent with pneumonia. Patient is admitted for IV ABXs treatment. Labs showed elevated WBC 15.9, lactate was elevated at 5.1, trop at 0.039, 0.085, 0.065; BUN/Cr at 25/1.8 mg/dl. Renal consult is requested for management of SCHUYLER/CKD. Patient states that he was diagnosed with hypertension in Jul however has not been taking medications consistently. pt does not have history of known renal disease, no recent NSAIDs or IV contrast exposure. No illicit drug use and denies any history of tobacco abuse. Past History Past Medical History: hypertension, other (See HPI) Past Surgical History: No surgical history, Other (Colonoscopy in July with polyp removal.) Social history: no significant social history Family history: no significant family history Medications and Allergies Allergies Allergy/AdvReac Type Severity Reaction Status Date / Time No Known Allergies Allergy Verified 01/17/21 23:48 Home Medications Medication Instructions Recorded Confirmed Last Taken Type Ascorbic Acid [Vitamin C with Lexy 500 mg PO 2XW 01/18/21 01/18/21 Unknown History Hips] Scpvkdk-Izxkagzfk-Evcb Tablet 1 tab PO 3XW 01/18/21 01/18/21 Unknown History Cholecalciferol Vit D3 1,000 units PO 2XW 01/18/21 01/18/21 Unknown History Ferrous Sulfate 99 mg PO 3XW 01/18/21 01/18/21 Unknown History Magnesium 250 mg PO 2XW 01/18/21 01/18/21 Unknown History Potassium 1 tab PO 3XW 01/18/21 01/18/21 Unknown History Active Meds: Active Medications Acetaminophen (Acetaminophen 325 Mg Tab) 650 mg PO Q6H PRN PRN Reason: Pain, Mild (1-3) Aspirin (Aspirin 81 Mg Tab Chew) 81 mg PO QDAY [facility] Last Admin: 01/18/21 10:53 Dose: 81 mg Documented by: Atorvastatin Calcium (Atorvastatin 40 Mg Tab) 80 mg PO QHS [facility] Last Admin: 01/18/21 22:08 Dose: 80 mg Documented by: Carvedilol (Carvedilol 12.5 Mg Tab) 12.5 mg PO BID [facility] Last Admin: 01/18/21 22:09 Dose: 12.5 mg Documented by: Famotidine (Famotidine 20 Mg Tab) 20 mg PO QHS [facility] Last Admin: 01/18/21 22:08 Dose: 20 mg Documented by: Furosemide (Furosemide 40 Mg/4 Ml Inj) 40 mg IV QDAY [facility] Last Admin: 01/18/21 17:32 Dose: 40 mg Documented by: Heparin Sodium (Porcine) (Heparin 5,000 Unit/1 Ml Vial) 5,000 unit SUB-Q Q8HR [facility] Last Admin: 01/18/21 22:08 Dose: 5,000 unit Documented by: Hydralazine HCl (Hydralazine 10 Mg Tab) 10 mg PO Q8HR [facility] Last Admin: 01/18/21 17:32 Dose: 10 mg Documented by: Ceftriaxone Sodium (Rocephin/Ns 2 Gm/100 Ml) 2 gm in 100 mls @ 200 mls/hr IV Q24H [facility]; Protocol Last Infusion: 01/18/21 09:00 Dose: Infused Documented by: Azithromycin (Zithromax/Ns) 500 mg in 250 mls @ 250 mls/hr IV Q24H [facility]; Protocol Last Infusion: 01/18/21 09:35 Dose: Infused Documented by: Magnesium Hydroxide (Magnesium Hydroxide (Mom) Oral Liqd Udc) 30 ml PO Q4H PRN PRN Reason: Constipation Morphine Sulfate (Morphine 2 Mg/1 Ml Inj) 2 mg IV Q4H PRN PRN Reason: Pain, Moderate (4-6) Morphine Sulfate (Morphine 2 Mg/1 Ml Inj) 2 mg IV Q5MIN PRN PRN Reason: Chest Pain unrelieved by NTG Ondansetron HCl (Ondansetron 4 Mg/2 Ml Inj) 4 mg IV Q8H PRN PRN Reason: Nausea And Vomiting Potassium Chloride (Potassium Chloride Er 20 Meq Tab) 20 meq PO QDAY [facility] Last Admin: 01/18/21 10:53 Dose: 20 meq Documented by: Sodium Chloride (Sodium Chloride 0.9% 10 Ml Flush Syringe) 10 ml IV BID [facility] Last Admin: 01/18/21 11:28 Dose: 10 ml Documented by: Sodium Chloride (Sodium Chloride 0.9% 10 Ml Flush Syringe) 10 ml IV PRN PRN PRN Reason: LINE FLUSH Last Admin: 01/18/21 17:32 Dose: 10 ml Documented by: Tramadol HCl (Tramadol 50 Mg Tab) 50 mg PO Q6H PRN PRN Reason: Pain, Moderate (4-6) Review of Systems Constitutional: fatigue, weakness Cardiovascular: shortness of breath, dyspnea on exertion Exam - Vital Signs Vital signs: Vital Signs Pulse Resp Pulse Ox 157 H 37 H 94 01/17/21 23:00 01/17/21 23:00 01/17/21 23:00 - General Appearance General appearance: well-developed, well-nourished, appears stated age EENT: ATNC, PERRL, mucous membranes moist Neck: Present: neck supple Respiratory: Clear to Ascultation Heart: regular, S1S2 Gastrointestinal: Present: normoactive bowel sounds Integumentary: no rash, other (no edema ) Neurologic: no focal deficit, alert and oriented x3, strength 5/5, CN 3-12 intact Psychiatric: mood/affect appropriate, cooperative Results - Lab Results 01/18/21 01:57 01/18/21 08:11 Most recent lab results Calcium 9.5 mg/dL (8.4-10.2) 01/18/21 08:11 Urine Creatinine 67.1 mg/dL (0.1-20.0) H 01/18/21 12:37 Urine Sodium 83 mmol/L 01/18/21 12:37 Assessment and Plan - Patient Problems (1) Hypertensive emergency Current Visit: Yes Status: Acute Plan to address problem: BP improved s/p nitro gtt, now being transitioned to po meds incl. carvedilol and hydralazine. BP improved to normotension (2) SCHUYLER (acute kidney injury) Current Visit: Yes Status: Acute Plan to address problem: SCHUYLER possibly secondary to pre-renal azotemia in the setting of pneumonia. Possi ble underlying hypertensive nephrosclerosis possible given h/o uncontrolled/untreated hypertension of unknown duration. Renal US reviewed which showed no acute abnormalities. Check UA, urine lytes, urine P/Cr ratio. Cont supportive care for SCHUYLER avoid further nephrotoxins, NSAIDs, IV contrast. Will m onitor lytes/renal parameters closely and make further recommendations. (3) Hypertensive chronic kidney disease with stage 1 through stage 4 chronic kidney disease, or unspecified chronic kidney disease Current Visit: Yes Status: Acute (4) Bilateral pneumonia Current Visit: Yes Status: Acute Plan to address problem: cont ABX with ceftriazone/azithromycin for treatment of community acquired pneumonia (5) Hypokalemia Current Visit: Yes Status: Acute Plan to address problem: K supplementation with KDur ongoing. If BP remains uncontrolled and renal function stablizes will consider adding JAYCEE-I/ARB (6) Acidosis Current Visit: Yes Status: Acute
[2021-01-19] MEDS: cefTRIAXone/NS 2 GM/100 ML 2 GM/100 ML BAG IV SCH (01:35)
[2021-01-19] MEDS: AZITHROMYCIN/NS 500 MG/250 ML 500 MG/250 ML BAG IV SCH (01:36)
[2021-01-19 05:02] LABS: Hematocrit 37.7 % (35.5-45.6); Mean Corpuscular HGB Conc 34 % (32-34); Mean Corpuscular Volume 85 fl (84-94); Platelet Count 135 K/mm3 (140-440); Red Blood Count 4.46 M/mm3 (3.65-5.03); Red Cell Distribution Width 15.8 % (13.2-15.2)
[2021-01-19 05:24] LABS: Calcium 8.9 mg/dL (8.4-10.2)
[2021-01-19] MEDS: HEPARIN 5,000 UNIT/1 ML VIAL SUB-Q SCH ×3 (06:04→22:35)
[2021-01-19] MEDS ORDERED: carvediloL 12.5 MG TAB PO SCH (08:38)
[2021-01-19] MEDS ORDERED: SODIUM CHLORIDE 0.9% 250ML 250 ML ONE (09:19)
[2021-01-19] MEDS: ASPIRIN 81 MG TAB CHEW PO SCH (09:23)
[2021-01-19] MEDS: FUROSEMIDE 40 MG/4 ML INJ IV SCH (09:23)
[2021-01-19] MEDS: POTASSIUM CHLORIDE 10 MEQ 10 MEQ/100 ML BAG IV SCH ×4 (09:23→12:52)
[2021-01-19] MEDS: POTASSIUM CHLORIDE ER 20 MEQ TAB PO SCH (09:23)
[2021-01-19] MEDS: carvediloL 25 MG TAB PO SCH ×2 (09:23→22:36)
[2021-01-19] MEDS ORDERED: ASPIRIN EC 325 MG TAB PO SCH (10:00)
--- NOTE | 2021-01-19 11:19 | Progress Note ---
Assessment and Plan Hypertensive emergency * Renal ultrasound is normal * Optimize antihypertensive regimen: Increase Coreg 25 mg twice daily, continue hydralazine 10 mg 3 times daily. Acute respiratory failure in setting of acute HFrEF * Currently maintaining SPO2 with supplemental oxygen via nasal cannula 4 L/min * Echocardiogram reviewed (01/18/2021): LVEF is 30 to 35%. LV is severely dilated. LV SF is moderately decreased. Mild LVH. Severe global hypokinesis of the left ventricle. Mild diastolic dysfunction. RV SF is normal. Mild AR. Mild MR. RVSP is 41 mmHg. Mild pericardial effusion noted. * GDMT. No JAYCEE/ARB due to SCHUYLER * Patient appears to be nearing euvolemia. Convert Lasix to 40 mg p.o. daily. Strict I/O's. Elevated troponin * Troponins are elevated, subacute and nonspecific. Trending downwards. continue to trend CE's SCHUYLER * No ACEI/ARB in setting of SCHUYLER. Avoid nephrotoxic agents We will follow Patient should follow-up with Dr Campa, [facility] heart specialists at our [place] location on 02/04/2021 at 2:15 PM. #[id number] This patient was seen in conjunction with Dr Campa who agrees with this assessment and plan of care - Patient Problems (1) Hypertensive emergency Current Visit: Yes Status: Acute Plan to address problem: (2) Acute respiratory failure Current Visit: Yes Status: Acute Plan to address problem: (3) New onset of congestive heart failure Current Visit: Yes Status: Acute Plan to address problem: (4) Hypokalemia Current Visit: Yes Status: Acute Plan to address problem: (5) Bilateral pneumonia Current Visit: Yes Status: Acute Plan to address problem: (6) Elevated troponin Current Visit: Yes Status: Acute Plan to address problem: (7) Hyperlipidemia Current Visit: Yes Status: Acute Plan to address problem: (8) SCHUYLER (acute kidney injury) Current Visit: Yes Status: Acute Plan to address problem: (9) DVT prophylaxis Current Visit: Yes Status: Acute Plan to address problem: Subjective Date of service: 01/19/21 Principal diagnosis: New onset HFrEF Interval history: Patient resting comfortably in bed. No shortness of breath or chest pain overnight Telemetry reviewed: Sinus rhythm 76. No events Objective Last Vital Signs Temp 98.3 F 01/19/21 08:03 Pulse 75 01/19/21 08:03 Resp 20 01/19/21 08:03 BP 154/104 01/19/21 08:03 Pulse Ox 99 01/19/21 08:03 - Physical Examination General: No Apparent Distress HEENT: Positive: PERRL, Normocephaly, Mucus Membranes Moist Neck: Positive: neck supple Cardiac: Positive: Reg Rate and Rhythm, S1/S2 Lungs: Positive: Normal Exam, Normal Breath Sounds Neuro: Positive: Grossly Intact Abdomen: Positive: Unremarkable, Soft Skin: Negative: Rash, Wound Musculoskeletal: No Pain Extremities: Present: upper extr. pulses, lower extr. pulses. Absent: edema - Labs and Meds CBC 01/19/21 Range/Units 04:19 WBC 10.2 (4.5-11.0) K/mm3 RBC 4.46 (3.65-5.03) M/mm3 Hgb 13.0 (11.8-15.2) gm/dl Hct 37.7 D (35.5-45.6) % Plt Count 135 L (140-440) K/mm3 Comprehensive Metabolic Panel 01/19/21 Range/Units 04:19 Sodium 142 (137-145) mmol/L Potassium 3.2 L (3.6-5.0) mmol/L Chloride 102.2 (98-107) mmol/L Carbon Dioxide 31 H (22-30) mmol/L BUN 25 H (9-20) mg/dL Creatinine 1.6 H (0.8-1.3) mg/dL Glucose 102 H (75-100) mg/dL Calcium 8.9 (8.4-10.2) mg/dL - Imaging and Cardiology EKG: report reviewed, image reviewed Echo: report reviewed (Echocardiogram reviewed (01/18/2021): LVEF is 30 to 35%. LV is severely dilated. LV SF is moderately decreased. Mild LVH. Severe global hypokinesis of the left ventricle. Mild diastolic dysfunction. RV SF is normal. Mild AR. Mild MR. RVSP is 41 mmHg. Mild pericardial effusion noted.) - EKG Sinus rhythms and dysrhythmias: sinus rhythm
--- NOTE | 2021-01-19 12:47 | Progress Note ---
Assessment and Plan - Patient Problems (1) New onset of congestive heart failure Current Visit: Yes Status: Acute Plan to address problem: Echo showed LVEF is 30 to 35%, with severely dilated LV. LV SF is moderately decreased. Mild LVH. Severe global hypokinesis. Cont carvedilol 25mg po bid, lasix 40mg IV qd for volume control. Once eGFR is in steady state will start JAYCEE-I. (2) SCHUYLER (acute kidney injury) Current Visit: Yes Status: Acute Plan to address problem: SCHUYLER possibly secondary to pre-renal azotemia in the setting of pneumonia/new onset HFrEF. Possible underlying hypertensive nephrosclerosis possible given h/o uncontrolled/untreated hypertension of unknown duration. Renal US reviewed which showed no acute abnormalities. Check UA, urine lytes, urine P/Cr ratio. Cont supportive care for SCHUYLER avoid further nephrotoxins, NSAIDs, IV contrast. once eGFR is in steady state will start JAYCEE-I for further cardio/renoprotection. Will monitor lytes/renal parameters closely and make further recommendations. (3) Hypertensive chronic kidney disease with stage 1 through stage 4 chronic kidney disease, or unspecified chronic kidney disease Current Visit: Yes Status: Acute Plan to address problem: monitor BP on current meds, incl. carvedilol 25mg po bid, hydralazine 25mg po tid, lasix 40mg IV daily. If renal function stabilizes further will add JAYCEE-I (4) Bilateral pneumonia Current Visit: Yes Status: Acute Plan to address problem: cont ABX with ceftriazone/azithromycin for treatment of community acquired pneumonia (5) Hypokalemia Current Visit: Yes Status: Acute Plan to address problem: K supplementation with KDur ongoing. (6) Acidosis Current Visit: Yes Status: Acute Subjective Date of service: 01/19/21 Principal diagnosis: New onset HFrEF Interval history: Pt awake, alert, in no acute distress. Echo showed LVEF is 30 to 35%, with severely dilated LV. LV SF is moderately decreased. Mild LVH. Severe global hypokinesis Objective - Vital Signs Vital signs: Vital Signs - 12hr 01/19/21 01/19/21 01/19/21 04:40 08:03 10:00 Temperature 98.6 F 98.3 F Pulse Rate 72 75 Pulse Rate [ 53 L From Monitor] Respiratory 18 20 Rate Blood Pressure 154/104 Blood Pressure 141/68 [Left] O2 Sat by Pulse 94 99 99 Oximetry - General Appearance General appearance: well-developed, well-nourished, appears stated age EENT: ATNC, PERRL, mucous membranes moist Neck: no JVD Respiratory: Present: Clear to Ascultation Cardiology: regular, S1S2 Gastrointestinal: normoactive bowel sounds Integumentary: no rash, other (no edema ) Neurologic: no focal deficit, alert and oriented x3, strength 5/5, CN 3-12 intact Psychiatric: mood/affect appropriate, cooperative - Lab 01/19/21 04:19 01/19/21 04:19 Most recent lab results Calcium 8.9 mg/dL (8.4-10.2) 01/19/21 04:19 Magnesium 2.20 mg/dL (1.7-2.3) 01/19/21 04:19 Urine Creatinine 67.1 mg/dL (0.1-20.0) H 01/18/21 12:37 Urine Sodium 83 mmol/L 01/18/21 12:37 Medications & Allergies - Medications Allergies/Adverse Reactions: Allergies No Known Allergies Allergy (Verified 01/17/21 23:48) Home Medications: Home Medications Medication Instructions Recorded Confirmed Last Taken Type Ascorbic Acid [Vitamin C with Lexy 500 mg PO 2XW 01/18/21 01/18/21 Unknown History Hips] Maeaugg-Uekgxeriw-Mrbi Tablet 1 tab PO 3XW 01/18/21 01/18/21 Unknown History Cholecalciferol Vit D3 1,000 units PO 2XW 01/18/21 01/18/21 Unknown History Ferrous Sulfate 99 mg PO 3XW 01/18/21 01/18/21 Unknown History Magnesium 250 mg PO 2XW 01/18/21 01/18/21 Unknown History Potassium 1 tab PO 3XW 01/18/21 01/18/21 Unknown History Active Medications: Generic Name Dose Route Start Last Admin Trade Name Freq PRN Reason Stop Dose Admin Acetaminophen 650 mg 01/18/21 01:43 Acetaminophen 325 Mg Tab PO Q6H PRN Pain, Mild (1-3) Aspirin 81 mg 01/18/21 10:00 01/19/21 09:23 Aspirin 81 Mg Tab Chew PO 81 mg QDAY ANAIS Administration Atorvastatin Calcium 80 mg 01/18/21 22:00 01/18/21 22:08 Atorvastatin 40 Mg Tab PO 80 mg QHS ANAIS Administration Azithromycin 500 mg 01/19/21 22:00 Azithromycin 250 Mg Tab PO 01/21/21 22:01 Q24H ANAIS Protocol Carvedilol 25 mg 01/19/21 10:00 01/19/21 09:23 Carvedilol 25 Mg Tab PO 25 mg Q12HR ANAIS Administration Famotidine 20 mg 01/18/21 22:00 01/18/21 22:08 Famotidine 20 Mg Tab PO 20 mg QHS ANAIS Administration Furosemide 40 mg 01/18/21 16:00 01/19/21 09:23 Furosemide 40 Mg/4 Ml Inj IV 40 mg QDAY ANAIS Administration Heparin Sodium (Porcine) 5,000 unit 01/18/21 14:00 01/19/21 06:04 Heparin 5,000 Unit/1 Ml Vial SUB-Q 5,000 unit Q8HR ANAIS Administration Hydralazine HCl 10 mg 01/18/21 17:00 01/18/21 22:30 Hydralazine 10 Mg Tab PO 10 mg Q8HR ANAIS Administration Ceftriaxone Sodium 2 gm in 100 mls @ 200 mls/hr 01/18/21 01:00 01/19/21 01:35 Rocephin/Ns 2 Gm/100 Ml IV 200 mls/hr Q24H ANAIS Administration Protocol Potassium Chloride 10 meq in 100 mls @ 100 mls/hr 01/19/21 09:30 01/19/21 12:12 Kcl 10meq/100ml IV 01/19/21 13:29 100 mls/hr Q1H ANAIS Administration Magnesium Hydroxide 30 ml 01/18/21 00:38 Magnesium Hydroxide (Mom) Oral Liqd Udc PO Q4H PRN Constipation Morphine Sulfate 2 mg 01/18/21 00:38 Morphine 2 Mg/1 Ml Inj IV Q4H PRN Pain, Moderate (4-6) Morphine Sulfate 2 mg 01/18/21 00:38 Morphine 2 Mg/1 Ml Inj IV Q5MIN PRN Chest Pain unrelieved by NTG Ondansetron HCl 4 mg 01/18/21 00:38 Ondansetron 4 Mg/2 Ml Inj IV Q8H PRN Nausea And Vomiting Potassium Chloride 20 meq 01/18/21 10:00 01/19/21 09:23 Potassium Chloride Er 20 Meq Tab PO 20 meq QDAY ANAIS Administration Sodium Chloride 10 ml 01/18/21 10:00 01/18/21 11:28 Sodium Chloride 0.9% 10 Ml Flush Syringe IV 10 ml BID ANAIS Administration Sodium Chloride 10 ml 01/18/21 00:38 01/18/21 17:32 Sodium Chloride 0.9% 10 Ml Flush Syringe IV 10 ml PRN PRN Administration LINE FLUSH Tramadol HCl 50 mg 01/18/21 01:43 Tramadol 50 Mg Tab PO Q6H PRN Pain, Moderate (4-6)
[2021-01-19] MEDS ORDERED: hydrALAZINE 10 MG TAB PO SCH (12:53)
--- NOTE | 2021-01-19 13:58 | Progress Note ---
Assessment and Plan 55-year-old male with known history of hypertension brought into the emergency room by EMS today for acute onset of shortness of breath. Upon assessment, initial oxygen saturation was said to be about 95% or later dropped to 85%. Blood pressure was 270/180 mmHg. He was then given sublingual nitroglycerin by EMS. Upon arrival in the emergency room patient was in severe respiratory distress and oxygen saturation was about 72% on room air. Patient was then started on BiPAP, given Lasix, IV morphine and nitroglycerin drip. Patient indicates that he was diagnosed with hypertension sometime in July but has not been on any medication. He denies any headache or dizziness, denies any diaphoresis. Patient denies any chest pain, no nausea or vomiting and no abdominal pain. He has had some mild cough which is nonproductive. He denies any sick contacts and no recent travel. Denies any contact with anyone with COVID-19. Patient indicates that he has been fully vaccinated against COVID-19. He denies any illicit drug use and denies any history of tobacco abuse. Work-up in the emergency room, labs were significant for leukocytosis of 15.9, hypokalemia of 3.3, lactic acid of 5.1, troponin was slightly bumped at 0.039, lipid profile was grossly abnormal. Creatinine was also elevated at 1.8. Patient alert, awake. Presently resting on 3 litres O2. O2 saturation 99%. No complaint of chest pain, shortness of breath or cough. Patient afebrile. No leukocytosis. Chest xray 01/17/21 reported Bilateral consolidation concerning for pneumonia. Blood pressure 140/81. Patient is on Zithromax, ceftriaxone, S/C Lovenox, Famotidine - Patient Problems (1) Acute respiratory failure Current Visit: Yes Status: Acute Plan to address problem: O2 3 litres via nasal canula. S/C Heparin Famotidine. Albuterol aerosol treatments q 6 hours. ABGs on room air. (2) Bilateral pneumonia Current Visit: Yes Status: Acute Plan to address problem: Patient is on Zithromax and ceftriaxone. (3) Hypertensive chronic kidney disease with stage 1 through stage 4 chronic kidney disease, or unspecified chronic kidney disease Current Visit: Yes Status: Acute Plan to address problem: Management as per nephrology. (4) Hypertensive emergency Current Visit: Yes Status: Acute Plan to address problem: Management as per primary care. (5) New onset of congestive heart failure Current Visit: Yes Status: Acute Plan to address problem: Management as per cardiology. Subjective Date of service: 01/19/21 Principal diagnosis: New onset HFrEF Interval history: 55-year-old male with known history of hypertension brought into the emergency room by EMS today for acute onset of shortness of breath. Upon assessment, initial oxygen saturation was said to be about 95% or later dropped to 85%. Blood pressure was 270/180 mmHg. He was then given sublingual nitroglycerin by EMS. Upon arrival in the emergency room patient was in severe respiratory distress and oxygen saturation was about 72% on room air. Patient was then started on BiPAP, given Lasix, IV morphine and nitroglycerin drip. Patient indicates that he was diagnosed with hypertension sometime in July ut has not been on any medication. He denies any headache or dizziness, denies any diaphoresis. Patient denies any chest pain, no nausea or vomiting and no abdominal pain. He has had some mild cough which is nonproductive. He denies any sick contacts and no recent travel. Denies any contact with anyone with COVID-19. Patient indicates that he has been fully vaccinated against COVID-19. He denies any illicit drug use and denies any history of tobacco abuse. Work-up in the emergency room, labs were significant for leukocytosis of 15.9, hypokalemia of 3.3, lactic acid of 5.1, troponin was slightly bumped at 0.039, lipid profile was grossly abnormal. Creatinine was also elevated at 1.8. Patient alert, awake. Presently resting on 3 litres O2. O2 saturation 99%. No complaint of chest pain, shortness of breath or cough. Patient afebrile. No leukocytosis. Chest xray 01/17/21 reported Bilateral consolidation concerning for pneumonia. Blood pressure 140/81. Patient is on Zithromax, ceftriaxone, S/C Lovenox, Famotidine Objective Vital Signs - 12hr 01/19/21 01/19/21 01/19/21 04:40 08:03 10:00 Temperature 98.6 F 98.3 F Pulse Rate 72 75 Pulse Rate [ 53 L From Monitor] Respiratory 18 20 Rate Blood Pressure 154/104 Blood Pressure 141/68 [Left] O2 Sat by Pulse 94 99 99 Oximetry 01/19/21 12:56 Temperature 97.8 F Pulse Rate 73 Pulse Rate [ From Monitor] Respiratory 20 Rate Blood Pressure 140/81 Blood Pressure [Left] O2 Sat by Pulse 99 Oximetry Constitutional: no acute distress, alert Eyes: non-icteric ENT: oropharynx moist Neck: supple, no lymphadenopathy Ascultation: Bilateral: rales, rhonchi Cardiovascular: regular rate and rhythm Gastrointestinal: normoactive bowel sounds, soft, non-tender Integumentary: normal Extremities: no cyanosis, no edema Neurologic: normal mental status, non-focal exam, pupils equal and round, CN II- XII normal Psychiatric: mood appropriate CBC and BMP: 01/19/21 04:19 01/19/21 04:19 ABG, PT/INR, D-dimer: PT/INR, D-dimer PT 13.6 Sec. (12.2-14.9) 01/17/21 23:09 INR 0.99 (0.87-1.13) 01/17/21 23:09 Abnormal lab findings: Abnormal Labs 01/17/21 01/17/21 01/17/21 23:09 23:09 23:09 WBC 15.9 H RBC 5.60 H Hgb 16.2 H Hct 48.8 H RDW 16.0 H Plt Count Lymph % (Auto) [place] # (Auto) Seg Neutrophils % Lymphocytes % (Manual) 44.0 H Seg Neutrophils # Lymphocytes # (Manual) 7.0 H Eosinophils # (Manual) 0.6 H Basophils # (Manual) 0.2 H Potassium 3.3 L Carbon Dioxide 21 L BUN 21 H Creatinine 1.8 H Glucose 238 H Lactic Acid 5.10 H* AST Troponin T 0.039 H NT-Pro-B Natriuret Pep Triglycerides 355 H Cholesterol 240 H LDL Cholesterol Direct 137 H HDL Cholesterol 61 H Urine Creatinine 01/17/21 01/17/21 01/18/21 23:09 23:09 00:06 WBC RBC Hgb Hct RDW Plt Count Lymph % (Auto) [place] # (Auto) Seg Neutrophils % Lymphocytes % (Manual) Seg Neutrophils # Lymphocytes # (Manual) Eosinophils # (Manual) Basophils # (Manual) Potassium Carbon Dioxide BUN Creatinine Glucose Lactic Acid 2.20 H* AST 47 H Troponin T NT-Pro-B Natriuret Pep 4538 H Triglycerides Cholesterol LDL Cholesterol Direct HDL Cholesterol Urine Creatinine 01/18/21 01/18/21 01/18/21 01:57 01:57 01:57 WBC 15.2 H RBC 5.17 H Hgb Hct RDW 15.5 H Plt Count Lymph % (Auto) 7.7 L [place] # (Auto) 0.9 H Seg Neutrophils % 85.4 H Lymphocytes % (Manual) Seg Neutrophils # 13.0 H Lymphocytes # (Manual) Eosinophils # (Manual) Basophils # (Manual) Potassium Carbon Dioxide BUN Creatinine Glucose Lactic Acid 2.10 H* AST Troponin T 0.083 H D NT-Pro-B Natriuret Pep Triglycerides Cholesterol LDL Cholesterol Direct HDL Cholesterol Urine Creatinine 01/18/21 01/18/21 01/18/21 08:11 08:11 08:11 WBC RBC Hgb Hct RDW Plt Count Lymph % (Auto) [place] # (Auto) Seg Neutrophils % Lymphocytes % (Manual) Seg Neutrophils # Lymphocytes # (Manual) Eosinophils # (Manual) Basophils # (Manual) Potassium 3.5 L Carbon Dioxide BUN 25 H Creatinine 1.8 H Glucose Lactic Acid 2.50 H* AST Troponin T 0.065 H D NT-Pro-B Natriuret Pep Triglycerides Cholesterol LDL Cholesterol Direct HDL Cholesterol Urine Creatinine 01/18/21 01/19/21 01/19/21 12:37 04:19 04:19 WBC RBC Hgb Hct RDW 15.8 H Plt Count 135 L Lymph % (Auto) [place] # (Auto) Seg Neutrophils % Lymphocytes % (Manual) Seg Neutrophils # Lymphocytes # (Manual) Eosinophils # (Manual) Basophils # (Manual) Potassium 3.2 L Carbon Dioxide 31 H BUN 25 H Creatinine 1.6 H Glucose 102 H Lactic Acid AST Troponin T NT-Pro-B Natriuret Pep Triglycerides Cholesterol LDL Cholesterol Direct HDL Cholesterol Urine Creatinine 67.1 H Chest x-ray: report reviewed, image reviewed Additional Studies: XR chest 1V ap 01/17/21 INDICATION / CLINICAL INFORMATION: Dyspnea COMPARISON: None available. FINDINGS: SUPPORT DEVICES: None. HEART / MEDIASTINUM: No significant abnormality. LUNGS / PLEURA : Significant bilateral lower lung zone consolidation. Costophrenic sulci are sharp. No pneumothorax. ADDITIONAL FINDINGS: No significant additional findings. IMPRESSION: 1. Bilateral consolidation concerning for pneumonia.
[2021-01-19] MEDS: hydrALAZINE 25 MG TAB PO SCH ×2 (14:26→22:37)
[2021-01-19 15:06] LABS: Bilirubin,Urine NEG (Negative); Blood,Urine NEG (Negative); Color,Urine Yellow (Yellow); Hyaline Casts,Urine 4 /LPF; Mucus,Urine FEW /HPF; Protein,Urine <15 mg/dL mg/dL (Negative); Urobilinogen,Urine < 2.0 mg/dL (<2.0)
[2021-01-19 15:15] LABS: Creatinine,Urine 79.1 mg/dL (0.1-20.0)
--- NOTE | 2021-01-19 15:51 | Progress Note ---
Assessment and Plan Hypertensive emergency -Status post nitroglycerin drip -Patient now placed on p.o. antihypertensive, BP currently stable -Encourage compliance Acute hypoxic respiratory failure, likely due to pulmonary edema from new onset congestive heart failure -Required BiPAP on admission -Patient currently on 2 to 3 L nasal cannula, continue to wean off and assess for home O2 requirement New onset congestive heart failure with systolic dysfunction -EF 30 to 35% -Continue diuretics, daily weight, monitor ins and outs -Cardiology following Bilateral pneumonia, continue antibiotics Hypokalemia, replete and monitor chemistry Elevated troponin, likely due to NSTEMI type II -Cardiology following, conservative medical management Hyperlipidemia, continue statin SCHUYLER likely on possible CKD -Due to uncontrolled hypertension and possible cardiorenal syndrome -Continue gentle diuresis and monitor renal function DVT prophylaxis, continue heparin Full CODE STATUS Daily clinical course; 01/19/21; Echocardiogram reviewed (01/18/2021): LVEF is 30 to 35%. LV is severely dilated. LV SF is moderately decreased. Severe global hypokinesis of the left ventricle. Mild diastolic dysfunction. RVSP is 41 mmHg. Mild pericardial effusion noted. patient nearing euvolemic, BP stable. Change Lasix to p.o. Creatinine level slightly improved. Continue to monitor BMP. If clinically stable and electrolytes improved possible discharge tomorrow. Subjective Date of service: 01/19/21 Principal diagnosis: New onset HFrEF Interval history: Patient seen and examined. Medical records and medication list reviewed. No acute event overnight noted by the RN. Patient denies any chest pain but has difficulty breathing on ambulation. P atient is tolerating diet. Discussed plan of care at bedside with patient. Objective - Exam Narrative Exam: GENERAL: well-developed and well-nourished lying on bed appeared to be in no discomfort. HEENT: Normocephalic. Atraumatic. No conjunctival congestion or icterus. Patient has moist mucous membranes. NECK: Supple. Trachea midline. CHEST/LUNGS: Clear to auscultated bilaterally, breathing nonlabored. No wheezes crackles or rhonchi. HEART/CARDIOVASCULAR: Regular in rate and rhythm. S1 and S2 positive. ABDOMEN: Abdomen is soft, nontender. Patient has normal bowel sounds. SKIN: There is no rash. Warm and dry. NEURO: No focal motor deficit. Follows command. MUSCULOSKELETAL: No joint effusion or tenderness. EXTRIMITY: No edema, no cyanosis or clubbing. PSYCH: Cooperative. - Constitutional Vitals: Vital Signs - 12hr 01/19/21 01/19/21 01/19/21 04:40 08:03 10:00 Temperature 98.6 F 98.3 F Pulse Rate 72 75 Pulse Rate [ 53 L From Monitor] Respiratory 18 20 Rate Blood Pressure 154/104 Blood Pressure 141/68 [Left] O2 Sat by Pulse 94 99 99 Oximetry 01/19/21 12:56 Temperature 97.8 F Pulse Rate 73 Pulse Rate [ From Monitor] Respiratory 20 Rate Blood Pressure 140/81 Blood Pressure [Left] O2 Sat by Pulse 99 Oximetry - Labs CBC & Chem 7: 01/19/21 04:19 01/19/21 04:19 Labs: Abnormal lab results 01/18/21 01/19/21 01/19/21 Range/Units 12:37 04:19 04:19 RDW 15.8 H (13.2-15.2) % Plt Count 135 L (140-440) K/mm3 Potassium 3.2 L (3.6-5.0) mmol/L Carbon Dioxide 31 H (22-30) mmol/L BUN 25 H (9-20) mg/dL Creatinine 1.6 H (0.8-1.3) mg/dL Glucose 102 H (75-100) mg/dL Urine Creatinine 67.1 H (0.1-20.0) mg/dL Urine Total Protein (5-11.8) mg/dL 01/19/21 Range/Units 14:29 RDW (13.2-15.2) % Plt Count (140-440) K/mm3 Potassium (3.6-5.0) mmol/L Carbon Dioxide (22-30) mmol/L BUN (9-20) mg/dL Creatinine (0.8-1.3) mg/dL Glucose (75-100) mg/dL Urine Creatinine 79.1 H (0.1-20.0) mg/dL Urine Total Protein 17 H (5-11.8) mg/dL HEART Score - HEART Score Troponin: Troponin T 0.065 ng/mL (0.00-0.029) H D 01/18/21 08:11
--- NOTE | 2021-01-19 17:51 | Electrocardiograph Report ---
[facility] Test Date: 2021-01-17 Test Time: 23:04:42 Pat Name: JATINDER LOVETT Department: Room: A456 Gender: M [employer] Operator: PRITESH : 1965 Requested By: ARVIND BARBOSA Order Number: [id number] Reading MD: Petra Gifford Measurements Intervals [place] Rate: 153 P: 83 [place]: 122 QRS: 4 QRSD: 98 T: 155 QT: 308 QTc: 492 Interpretive Statements Sinus or atrial tachycardia LAE, consider biatrial enlargement LVH with secondary repolarization abnormality Possible old anterior myocardial infarction No previous ECG available for comparison Electronically Signed On 01-19-2021 17:50:51 EDT by Petra Gifford
[2021-01-19] MEDS: ALBUTEROL 2.5 MG/3 ML NEBU IH SCH (20:19)
[2021-01-19] MEDS ORDERED: AZITHROMYCIN 250 MG TAB PO SCH (22:00)
[2021-01-19] MEDS: FAMOTIDINE 20 MG TAB PO SCH (22:38)
[2021-01-19] MEDS: hydrALAZINE 10 MG TAB PO SCH (22:39)
[2021-01-20] MEDS ORDERED: hydrALAZINE 20 MG/1 ML INJ IV PRN (00:58)
[2021-01-20] MEDS: cefTRIAXone/NS 2 GM/100 ML 2 GM/100 ML BAG IV SCH (01:13)
[2021-01-20] MEDS: hydrALAZINE 25 MG TAB PO SCH (05:40)
[2021-01-20] MEDS: HEPARIN 5,000 UNIT/1 ML VIAL SUB-Q SCH (05:41)
[2021-01-20 06:47] LABS: BUN/Creatinine Ratio 18; Blood Urea Nitrogen 22 mg/dL (9-20); Calcium 8.9 mg/dL (8.4-10.2); Hemolysis Index 3
[2021-01-20] MEDS: ALBUTEROL 2.5 MG/3 ML NEBU IH SCH ×3 (09:07→14:19)
[2021-01-20] MEDS: ASPIRIN 81 MG TAB CHEW PO SCH (09:55)
[2021-01-20] MEDS: POTASSIUM CHLORIDE ER 20 MEQ TAB PO SCH (09:55)
[2021-01-20] MEDS: carvediloL 25 MG TAB PO SCH (09:55)
[2021-01-20] MEDS ORDERED: FUROSEMIDE 40 MG TAB PO SCH ×2 (10:00→12:59)
[2021-01-20 12:43] VITALS: BP 149/87
[2021-01-20] MEDS ORDERED: POTASSIUM CHLORIDE ER 20 MEQ TAB PO SCH (13:00)
--- NOTE | 2021-01-20 13:03 | Progress Note ---
Assessment and Plan Hypertensive emergency * Renal ultrasound is normal * Continue current antihypertensive regimen Acute respiratory failure in setting of acute HFrEF * Currently maintaining SPO2 with supplemental oxygen via nasal cannula 4 L/min * Echocardiogram reviewed (01/18/2021): LVEF is 30 to 35%. LV is severely dilated. LV SF is moderately decreased. Mild LVH. Severe global hypokinesis of the left ventricle. Mild diastolic dysfunction. RV SF is normal. Mild AR. Mild MR. RVSP is 41 mmHg. Mild pericardial effusion noted. * GDMT. No JAYCEE/ARB due to SCHUYLER * Patient appears to be nearing euvolemia. Convert Lasix to 20 mg p.o. daily. Strict I/O's. Elevated troponin * Troponins are elevated, subacute and nonspecific. Trending downwards. contin ue to trend CE's SCHUYLER * No ACEI/ARB in setting of SCHUYLER. Avoid nephrotoxic agents Patient is currently normotensive and euvolemic. Stable cardiac status. Patient may discharge from cardiac standpoint. Recommend ASA, statin, beta- alissa at discharge. Will follow on as-needed basis Patient should follow-up with Dr Campa, [facility] heart specialists at our [place] location on 02/04/2021 at 2:15 PM. #[phone] This patient was seen in conjunction with Dr Campa who agrees with this assessment and plan of care - Patient Problems (1) Hypertensive emergency Current Visit: Yes Status: Acute Plan to address problem: (2) Acute respiratory failure Current Visit: Yes Status: Acute Plan to address problem: (3) New onset of congestive heart failure Current Visit: Yes Status: Acute Plan to address problem: (4) Hypokalemia Current Visit: Yes Status: Acute Plan to address problem: (5) Bilateral pneumonia Current Visit: Yes Status: Acute Plan to address problem: (6) Elevated troponin Current Visit: Yes Status: Acute Plan to address problem: (7) Hyperlipidemia Current Visit: Yes Status: Acute Plan to address problem: (8) SCHUYLER (acute kidney injury) Current Visit: Yes Status: Acute Plan to address problem: (9) DVT prophylaxis Current Visit: Yes Status: Acute Plan to address problem: Subjective Date of service: 01/20/21 Principal diagnosis: New onset HFrEF Interval history: Patient resting comfortably in bed. No shortness of breath or chest pain overnight Telemetry reviewed: Sinus rhythm 68. No events Objective Last Vital Signs Temp 98.2 F 01/20/21 12:02 Pulse 71 01/20/21 12:02 Resp 20 01/20/21 12:02 BP 149/87 01/20/21 12:02 Pulse Ox 96 01/20/21 12:02 - Physical Examination General: No Apparent Distress HEENT: Positive: PERRL, Normocephaly, Mucus Membranes Moist Neck: Positive: neck supple Cardiac: Positive: Reg Rate and Rhythm, S1/S2 Lungs: Positive: Normal Exam, Normal Breath Sounds Neuro: Positive: Grossly Intact Abdomen: Positive: Unremarkable, Soft Skin: Negative: Rash, Wound Musculoskeletal: No Pain Extremities: Present: upper extr. pulses, lower extr. pulses. Absent: edema - Labs and Meds Comprehensive Metabolic Panel 01/20/21 Range/Units 04:43 Sodium 142 (137-145) mmol/L Potassium 3.5 L (3.6-5.0) mmol/L Chloride 103.3 (98-107) mmol/L Carbon Dioxide 27 (22-30) mmol/L BUN 22 H (9-20) mg/dL Creatinine 1.2 (0.8-1.3) mg/dL Glucose 90 (75-100) mg/dL Calcium 8.9 (8.4-10.2) mg/dL - Imaging and Cardiology EKG: report reviewed, image reviewed Echo: report reviewed (Echocardiogram reviewed (01/18/2021): LVEF is 30 to 35%. LV is severely dilated. LV SF is moderately decreased. Mild LVH. Severe global hypokinesis of the left ventricle. Mild diastolic dysfunction. RV SF is normal. Mild AR. Mild MR. RVSP is 41 mmHg. Mild pericardial effusion noted.) - Telemetry EKG Rhythm: Sinus Rhythm - EKG Sinus rhythms and dysrhythmias: sinus rhythm
--- NOTE | 2021-01-20 13:51 | Discharge Summary ---
Providers - Providers Date of Admission: 01/18/21 00:34 Date of discharge: 01/20/21 Attending physician: KERVIN ROSARIO 01/18/21 Consult to Cardiac Rehabilitation [CONS] Routine Reason For Exam: Phase I 01/18/21 00:39 Consult to Dietitian/Nutrition [CONS] Routine Physician Instructions: Reason For Exam: Reason for Consult: Diet education Consult to Physician [CONS] Routine Comment: Consulting Provider: ANAHI LANE Physician Instructions: Reason For Exam: RESPIRATORY FAILURE, NEW ONSET CHF,HYPERTENSION 01/18/21 00:44 Consult to Cardiology [CONS] Routine Consulting Provider: SAVI DICK Reason For Exam: CHF- NEW ONSET,HYPERTENSIVE EMERGENCY 01/18/21 01:54 Consult to Physician [CONS] Routine Comment: called office/ nehemias Consulting Provider: CONCETTA CARVER Physician Instructions: Reason For Exam: SCHUYLER Primary care physician: DATACAP DEVELOPER Hospitalization Condition: Stable Pertinent studies: Chest x-ray, renal ultrasound, 2D echocardiogram Hospital course: 55-year-old male with known history of hypertension noncompliant with antihypertensives brought into the emergency room by EMS for acute onset of shortness of breath. Upon assessment, initial oxygen saturation was said to be about 95% or later dropped to 85%. Blood pressure was 270/180 mmHg. Upon a rrival in the emergency room patient was in severe respiratory distress and oxygen saturation was about 72% on room air. Patient was then started on BiPAP, given Lasix, IV morphine and nitroglycerin drip. Work-up in the emergency room, labs were significant for leukocytosis of 15.9, hypokalemia of 3.3, lactic acid of 5.1, troponin was slightly bumped at 0.039, lipid profile was grossly abnormal. Creatinine was also elevated at 1.8. Chest x-ray was suggestive for bilateral consolidation. Patient was also initiated on IV antibiotics and admitted to the intensive care unit for further evaluation and management. Patient was weaned off from the nitroglycerin drip and was able to maintain blood pressure with oral medications. 2D echocardiogram showed EF 30 to 35%. Cardiology and nephrology was consulted. Patient creatinine level also stabilized and electrolytes were followed and repleted as needed. Renal ultrasound showed normal-appearing kidneys. Patient was counseled extensively to be compliant with his medications and he verbalized understanding. Cardiology recommended no additional work-up and recommended patient to follow-up outpatient . Disposition: DC/TX-06 HOME UNDER HOME [facility] Final Discharge Diagnosis (Prints w/discharge instructions): --Hypertensive emergency. --Acute hypoxic respiratory failure, likely due to pulmonary edema from new onset congestive heart failure,Required BiPAP on admission, now resolved. --New onset congestive heart failure with systolic dysfunction, EF 30 to 35%. --Bilateral pneumonia, treated with antibiotics. --Hypokalemia, repleted. --Elevated troponin, likely due to NSTEMI type II. --Hyperlipidemia. --SCHUYLER likely due to uncontrolled hypertension with possible cardiorenal syndrome, Cr significantly improved Time spent for discharge: 34 minutes Core Measure Documentation - Palliative Care Palliative Care/ Comfort Measures: Not Applicable - Core Measures Any of the following diagnoses?: heart failure - Heart Failure Discharge Requirements JAYCEE/ARB for LVSD if EF <40%: No Reason for no JAYCEE/ARB: Renal impairment Beta alissa at discharge: Yes Exam - Physical Exam Narrative exam: GENERAL: well-developed and well-nourished lying on bed appeared to be in no discomfort. HEENT: Normocephalic. Atraumatic. No conjunctival congestion or icterus. Patient has moist mucous membranes. NECK: Supple. Trachea midline. CHEST/LUNGS: Clear to auscultated bilaterally, breathing nonlabored. No wheezes crackles or rhonchi. HEART/CARDIOVASCULAR: Regular in rate and rhythm. S1 and S2 positive. ABDOMEN: Abdomen is soft, nontender. Patient has normal bowel sounds. SKIN: There is no rash. Warm and dry. NEURO: No focal motor deficit. Follows command. MUSCULOSKELETAL: No joint effusion or tenderness. EXTRIMITY: No edema, no cyanosis or clubbing. PSYCH: Cooperative. - Constitutional Vitals: Temp Pulse Resp BP Pulse Ox 98.2 F 71 20 149/87 96 01/20/21 12:02 01/20/21 12:02 01/20/21 12:02 01/20/21 12:01/20/21 12:02 Plan Activity: advance as tolerated Weight Bearing Status: Weight Bear as Tolerated Diet: low fat, low salt Special Instructions: restrict fluid intake to (1.2 L/day), record daily weights, record daily BP diary Additional Instructions: Follow-up with Dr Grijalva, [facility] heart specialists at [facility] on 02/04/2021 at 2:15 PM. #[phone] Follow up with: PRIMARY CAREMD [Primary Care Provider] - 3-5 Days MANPREET GRIJALVA MD [Staff Physician] - 7 Days Prescriptions: AtorvaSTATin [Lipitor] 80 mg PO QHS #60 tablet hydrALAZINE [Apresoline TAB] 50 mg PO Q8HR #90 tablet Aspirin [Aspirin BABY CHEW TAB] 81 mg PO QDAY #30 tab.chew carvediloL [Coreg] 25 mg PO Q12HR #60 tablet Potassium Chloride [K-Dur] 20 meq PO QDAY #30 tablet Furosemide [Lasix TAB] 20 mg PO QAM #30 tablet Azithromycin [Zithromax TAB] 500 mg PO Q24H #3 tablet
[2021-01-20] MEDS ORDERED: hydrALAZINE 25 MG TAB PO SCH (14:00)
--- NOTE | 2021-01-20 14:56 | Progress Note ---
Assessment and Plan Acute hypoxemic respiratory failure on NIV Hypertensive emergency, likely cause Flash pulmonary edema community-acquired pneumonia Heart failure with reduced ejection fraction NSTEMI Acute kidney injury HTN Leukocytosis Lactic acidosis Hyperlipidemia Tobacco use disorder. - gentle diuresis for CHF - prn supplemental oxygen to keep O2 sats > 90% - prn bronchodilators (GEOVANNA) with pulm hygiene per RT - avoid nephrotoxins, renally dose all medications - mobility protocols to prevent pressure ulcers - PT/OT as tolerated - Wound care per RN/WCT - accuchecks with glycemic control per SSI for target blood glucose < 180 mg/dL - tobacco abstinence strongly counseled at the bedside - home oxygen evaluation at discharge - GI & VTE prophylaxis - Flu & pneumovax per protocol - Pulmonary out patient follow up for PFTs and optimization of respiratory status - continue other care per attending / other consultants - prn analgesia per pain score ... re-evaluate in am & prn Subjective Date of service: 01/20/21 Principal diagnosis: Ac. hypoxemic resp failure; HTNsive emergency; CAP; HFrEF; NSTEMI; SCHUYLER Interval history: Patient is seen today for: Acute hypoxemic resp failure; HTNsive emergency; Flash pulmonary edema; CAP; HFrEF; NSTEMI; SCHUYLER Seen and examined at bedside; 24hour events reviewed; nursing and respiratory care staff consulted; no adverse overnight events reported to me; resting in bed; Objective Vital Signs - 12hr 01/20/21 01/20/21 01/20/21 03:58 05:40 08:00 Temperature 98.0 F Pulse Rate 75 75 Pulse Rate [ 79 Posterior Bilateral Throughout] Respiratory 18 Rate Respiratory 20 Rate [Posterior Bilateral Throughout] Blood Pressure 142/90 142/90 O2 Sat by Pulse 93 Oximetry 01/20/21 01/20/21 01/20/21 08:56 09:09 12:02 Temperature 98.0 F 98.2 F Pulse Rate 78 71 Pulse Rate [ Posterior Bilateral Throughout] Respiratory 20 20 Rate Respiratory Rate [Posterior Bilateral Throughout] Blood Pressure 151/86 149/87 O2 Sat by Pulse 96 96 96 Oximetry 01/20/21 14:00 Temperature Pulse Rate Pulse Rate [ 77 Posterior Bilateral Throughout] Respiratory Rate Respiratory 18 Rate [Posterior Bilateral Throughout] Blood Pressure O2 Sat by Pulse Oximetry Constitutional: no acute distress, alert Eyes: non-icteric ENT: oropharynx moist Neck: supple, no lymphadenopathy Ascultation: Bilateral: rales, rhonchi Cardiovascular: regular rate and rhythm Gastrointestinal: normoactive bowel sounds, soft, non-tender Integumentary: normal Extremities: no cyanosis, no edema Neurologic: normal mental status, non-focal exam, pupils equal and round, CN II- XII normal Psychiatric: mood appropriate CBC and BMP: 01/19/21 04:19 01/20/21 04:43 ABG, PT/INR, D-dimer: ABG ABG pH 7.433 (7.320-7.450) 01/20/21 10:50 POC ABG pCO2 37.7 mmHg (32.0-48.0) 01/20/21 10:50 POC ABG pO2 71.0 mmHg (83-108) L 01/20/21 10:50 POC ABG HCO3 24.6 01/20/21 10:50 ABG O2 Saturation 95.3 (0-100) 01/20/21 10:50 PT/INR, D-dimer PT 13.6 Sec. (12.2-14.9) 01/17/21 23:09 INR 0.99 (0.87-1.13) 01/17/21 23:09 Abnormal lab findings: Abnormal Labs 01/17/21 01/17/21 01/17/21 23:09 23:09 23:09 WBC 15.9 H RBC 5.60 H Hgb 16.2 H Hct 48.8 H RDW 16.0 H Plt Count Lymph % (Auto) Gillespie # (Auto) Seg Neutrophils % Lymphocytes % (Manual) 44.0 H Seg Neutrophils # Lymphocytes # (Manual) 7.0 H Eosinophils # (Manual) 0.6 H Basophils # (Manual) 0.2 H POC ABG pO2 ABG Glucose Potassium 3.3 L Carbon Dioxide 21 L BUN 21 H Creatinine 1.8 H Glucose 238 H Lactic Acid 5.10 H* AST Troponin T 0.039 H NT-Pro-B Natriuret Pep Triglycerides 355 H Cholesterol 240 H LDL Cholesterol Direct 137 H HDL Cholesterol 61 H Arterial Blood Glucose Urine Creatinine Urine Total Protein 01/17/21 01/17/21 01/18/21 23:09 23:09 00:06 WBC RBC Hgb Hct RDW Plt Count Lymph % (Auto) Gillespie # (Auto) Seg Neutrophils % Lymphocytes % (Manual) Seg Neutrophils # Lymphocytes # (Manual) Eosinophils # (Manual) Basophils # (Manual) POC ABG pO2 ABG Glucose Potassium Carbon Dioxide BUN Creatinine Glucose Lactic Acid 2.20 H* AST 47 H Troponin T NT-Pro-B Natriuret Pep 4538 H Triglycerides Cholesterol LDL Cholesterol Direct HDL Cholesterol Arterial Blood Glucose Urine Creatinine Urine Total Protein 01/18/21 01/18/21 01/18/21 01:57 01:57 01:57 WBC 15.2 H RBC 5.17 H Hgb Hct RDW 15.5 H Plt Count Lymph % (Auto) 7.7 L Gillespie # (Auto) 0.9 H Seg Neutrophils % 85.4 H Lymphocytes % (Manual) Seg Neutrophils # 13.0 H Lymphocytes # (Manual) Eosinophils # (Manual) Basophils # (Manual) POC ABG pO2 ABG Glucose Potassium Carbon Dioxide BUN Creatinine Glucose Lactic Acid 2.10 H* AST Troponin T 0.083 H D NT-Pro-B Natriuret Pep Triglycerides Cholesterol LDL Cholesterol Direct HDL Cholesterol Arterial Blood Glucose Urine Creatinine Urine Total Protein 01/18/21 01/18/21 01/18/21 08:11 08:11 08:11 WBC RBC Hgb Hct RDW Plt Count Lymph % (Auto) Gillespie # (Auto) Seg Neutrophils % Lymphocytes % (Manual) Seg Neutrophils # Lymphocytes # (Manual) Eosinophils # (Manual) Basophils # (Manual) POC ABG pO2 ABG Glucose Potassium 3.5 L Carbon Dioxide BUN 25 H Creatinine 1.8 H Glucose Lactic Acid 2.50 H* AST Troponin T 0.065 H D NT-Pro-B Natriuret Pep Triglycerides Cholesterol LDL Cholesterol Direct HDL Cholesterol Arterial Blood Glucose Urine Creatinine Urine Total Protein 01/18/21 01/19/21 01/19/21 12:37 04:19 04:19 WBC RBC Hgb Hct RDW 15.8 H Plt Count 135 L Lymph % (Auto) Gillespie # (Auto) Seg Neutrophils % Lymphocytes % (Manual) Seg Neutrophils # Lymphocytes # (Manual) Eosinophils # (Manual) Basophils # (Manual) POC ABG pO2 ABG Glucose Potassium 3.2 L Carbon Dioxide 31 H BUN 25 H Creatinine 1.6 H Glucose 102 H Lactic Acid AST Troponin T NT-Pro-B Natriuret Pep Triglycerides Cholesterol LDL Cholesterol Direct HDL Cholesterol Arterial Blood Glucose Urine Creatinine 67.1 H Urine Total Protein 07/07/21 07/08/21 07/08/21 14:29 04:43 10:50 WBC RBC Hgb Hct RDW Plt Count Lymph % (Auto) Gillespie # (Auto) Seg Neutrophils % Lymphocytes % (Manual) Seg Neutrophils # Lymphocytes # (Manual) Eosinophils # (Manual) Basophils # (Manual) POC ABG pO2 71.0 L ABG Glucose 101 H Potassium 3.5 L Carbon Dioxide BUN 22 H Creatinine Glucose Lactic Acid AST Troponin T NT-Pro-B Natriuret Pep Triglycerides Cholesterol LDL Cholesterol Direct HDL Cholesterol Arterial Blood Glucose 101 H Urine Creatinine 79.1 H Urine Total Protein 17 H
[2021-01-21] MEDS ORDERED: FUROSEMIDE 20 MG TAB PO SCH (10:00)
== END 2021-01-20 16:39 | disposition home health service (06) | DRG 189 ==
LOC: ED 22:53 → CC1 01-18 00:34 → 4A 01-18 15:30
PROVIDERS: ADMIT Internal Medicine Geriatric Medicine; ATTEND Internal Medicine
PROC: 5A09357 Assistance with Respiratory Ventilation, Less than 24 Consecutive Hours, Continuous Positive Airway Pressure (ICD-10-PCS; 2021-01-17)
PROC: 4A033R1 Measurement of Arterial Saturation, Peripheral, Percutaneous Approach (ICD-10-PCS; principal; 2021-01-20)
DX: J96.01 Acute respiratory failure with hypoxia (principal); I21.A1 Myocardial infarction type 2; J18.9 Pneumonia, unspecified organism; I50.21 Acute systolic (congestive) heart failure; I13.0 Hypertensive heart and chronic kidney disease with heart failure and stage 1 through stage 4 chronic kidney disease, or unspecified chronic kidney disease; N17.9 Acute kidney failure, unspecified; I16.1 Hypertensive emergency; E87.2 Acidosis; E87.6 Hypokalemia; D72.829 Elevated white blood cell count, unspecified; E78.5 Hyperlipidemia, unspecified; F17.200 Nicotine dependence, unspecified, uncomplicated; N18.9 Chronic kidney disease, unspecified; Z79.899 Other long term (current) drug therapy
CPT/HCPCS: 36415; 36600; 71045; 76770; 80048; 80061; 80076; 81001; 82140; 82570; 82805; 83735; 83880; 84145; 84156; 84300; 84484; 85007; 85025; 85027; 85610; 85730; 87040; 93005; 93306; 94640; 96365; 96375; G0378; A9270-GY; J0360; J0456; J0696; J1644; J1940; J2270; J2543; J3480; J7050

== ENCOUNTER 2021-01-28 07:58 | Emergency (ER) | payer OTHER ==
[2021-01-28] MEDS ORDERED: hydrALAZINE 20 MG/1 ML INJ IV ONE (08:48)
--- NOTE | 2021-01-28 08:50 | Emergency Department Report ---
HPI - General Chief Complaint: High BP Time Seen by Provider: 01/28/21 08:26 - HPI HPI: 55-year-old male with history of CHF and recent hospitalization for hypoxemic respiratory failure CHF exacerbation, community-acquired pneumonia, NSTEMI, and SCHUYLER was discharged on 01/20 and presents today due to elevated blood pressure. He says that earlier this morning, he felt slightly woozy, he describes this as "feeling off". He also noticed that his palms were sweaty. However he did not experience any chest pain, shortness of breath, cough, fever, headache, vision change, abdominal pain, nausea/vomiting, palpitations, syncope, or any other symptoms than those mentioned. He went to the fire department where his blood pressure was checked and it was found to be in the 220s systolic. He says he has been taking all of his prescribed medications and completed the antibiotics that were given to him when he was discharged. He says he skipped 1 dose of his Lasix yesterday as a trial but other than that has been compliant with his medications. At this time he has no symptoms. At no time did he experience any chest pain ED Past Medical Hx - Past Medical History Previous Medical History?: Yes Hx Hypertension: Yes Hx Heart Attack/AMI: No Hx Congestive Heart Failure: Yes Hx Diabetes: No Hx Deep Vein Thrombosis: No Hx Asthma: No Hx COPD: No Hx HIV: No - Surgical History Hx Coronary Stent: No Hx Pacemaker: No Hx Internal Defibrillator: No - Social History Smoking Status: Never Smoker Substance Use Type: None - Medications Home Medications: Home Medications Medication Instructions Recorded Confirmed Last Taken Type Aspirin [Aspirin BABY CHEW TAB] 81 mg PO QDAY #30 tab.chew 01/20/21 Unknown Rx AtorvaSTATin [Lipitor] 80 mg PO QHS #60 tablet 01/20/21 Unknown Rx Azithromycin [Zithromax TAB] 500 mg PO Q24H #3 tablet 01/20/21 Unknown Rx Furosemide [Lasix TAB] 20 mg PO QAM #30 tablet 01/20/21 Unknown Rx Potassium Chloride [K-Dur] 20 meq PO QDAY #30 tablet 01/20/21 Unknown Rx carvediloL [Coreg] 25 mg PO Q12HR #60 tablet 01/20/21 Unknown Rx hydrALAZINE [Apresoline TAB] 50 mg PO Q8HR #90 tablet 01/20/21 Unknown Rx ED Review of Systems ROS: Stated complaint: HYPTENSION/WEAKNESS Other details as noted in HPI Physical Exam - Physical Exam Vital Signs: Vital Signs 01/28/21 01/28/21 08:00 08:24 Temperature 99.9 F H Pulse Rate 78 70 Respiratory 19 19 Rate Blood Pressure 209/120 Blood Pressure 209/120 199/112 [Left] O2 Sat by Pulse 98 99 Oximetry Physical Exam: GENERAL: Well developed and well nourished. No acute distress HEENT: Normocephalic. No obvious signs of trauma. Moist mucous membranes. EYES: Extraocular movements are intact. Pupils are equal round and reactive to light bilaterally NECK: Supple. Trachea is midline. LUNGS: Nonlabored breathing. Equal chest rise bilaterally. Clear to auscultation bilaterally. HEART/CARDIOVASCULAR: Regular rate and rhythm. No murmurs or rubs. VASCULAR: 2+ peripheral pulses. Cap refill < 2 seconds. 2+ pitting edema bilateral lower extremities ABDOMEN: Abdomen is soft and nondistended. There is no significant tenderness, guarding or rebound. SKIN: Skin is warm and dry NEURO: Patient is awake, alert, and oriented. 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 No focal deficits. Normal motor and sensory exam throughout. Normal speech. MUSCULOSKELETAL: No obvious deformities. No significant tenderness. Normal ROM throughout. ED Course Vital Signs 01/28/21 01/28/21 08:00 08:24 Temperature 99.9 F H Pulse Rate 78 70 Respiratory 19 19 Rate Blood Pressure 209/120 Blood Pressure 209/120 199/112 [Left] O2 Sat by Pulse 98 99 Oximetry ED Medical Decision Making - Lab Data Result diagrams: 01/28/21 08:54 01/28/21 08:54 Labs 01/28/21 01/28/21 01/28/21 08:54 08:54 08:54 WBC 8.7 RBC 4.84 Hgb 13.9 Hct 40.7 MCV 84 MCH 29 MCHC 34 RDW 15.4 H Plt Count 207 PT 12.5 INR 0.89 APTT 27.5 Sodium 141 Potassium 4.0 Chloride 106.2 Carbon Dioxide 25 Anion Gap 14 BUN 17 Creatinine 1.1 Estimated GFR > 60 BUN/Creatinine Ratio 15 Glucose 97 Calcium 9.4 Total Bilirubin 0.60 AST 21 ALT 27 Alkaline Phosphatase 93 Troponin T 0.011 Total Protein 6.7 Albumin 4.0 Albumin/Globulin Ratio 1.5 - EKG Data -: EKG Interpreted by [facility] - EKG Data 01/28/21 10:22 Normal sinus rhythm. Normal axis. Normal intervals. No significant ST segment or T wave abnormalities. LVH associated changes. - Medical Decision Making 55-year-old male with very complex medical history including CHF and recent hospitalization for hypoxemic respiratory failure, pneumonia, NSTEMI, and SCHUYLER presents due to elevated blood pressure. He says that today he felt slightly woozy and had sweating palms but this was his only symptoms. His blood pressure was in the 220s systolic. He has been taking all of his medications but does admit to missing his Lasix dose yesterday. He has no other symptoms or complaints. The patient does have a low-grade temperature of 99.9, the remainder of his vital signs are normal with the exception of elevated blood pressure which is 199/112 here in the emergency department. His physical exam does not reveal any significant abnormalities. Nonetheless, we will perform full work-up with labs, EKG, and chest x-ray and give 10 mg of IV hydralazine and then follow-up. Repeat assessment 10:20 AM, the patient reports that he feels much better. His blood pressure is improved to the 160s systolic. His labs have resulted and reveal no significant leukocytosis or anemia. There are no significant electrolyte abnormalities and kidney function is normal. Troponin is negative. EKG is not ischemic. Chest x-ray shows marked improvement in his bibasilar infiltrates. Given that the patient feels better and that his blood pressure is controlled, I instructed him to follow-up within the next couple days with his primary care doctor to discuss changing his medications. In addition, since he has a low-grade temperature of 99.9, he should be monitoring his temperature closely and should return to the emergency department or see DrTereso Should he develop cough and shortness of breath. He will also be given strict return p recautions. All this was discussed with the patient expressed understanding and agreement with the plan of care. Critical care attestation.: If time is entered above; I have spent that time in minutes in the direct care of this critically ill patient, excluding procedure time. ED Disposition Clinical Impression: Lightheaded, Hypertensive urgency Disposition: DC-01 TO HOME OR SELFCARE Is pt being admited?: No Condition: Stable Instructions: Hypertension, Adult, Apgo-[id number], Managing Your Hypertension Additional Instructions: You were found to have a low-grade temperature of 99.9 here in the emergency room. Your chest x-ray showed marked improvement in your lungs. However, please monitor your temperature to ensure you are not having fevers. You should follow-up with your primary care doctor in 1 to 2 days to discuss changing your medication regimen or the doses. Return to the emergency department should you develop worsening symptoms, new cough and shortness of breath, or any other new concerns. Referrals: PRIMARY CARE, [Referring] - 3-5 Days
[2021-01-28 09:15] LABS: Hematocrit 40.7 % (35.5-45.6); Hemoglobin 13.9 gm/dl (11.8-15.2); Mean Corpuscular HGB Conc 34 % (32-34); Mean Corpuscular Volume 84 fl (84-94); Platelet Count 207 K/mm3 (140-440); Red Blood Count 4.84 M/mm3 (3.65-5.03); Red Cell Distribution Width 15.4 % (13.2-15.2)
[2021-01-28 09:38] LABS: Alanine Aminotransferase 27 units/L (7-56); BUN/Creatinine Ratio 15; Blood Urea Nitrogen 17 mg/dL (9-20); Calcium 9.4 mg/dL (8.4-10.2); Hemolysis Index 6
[2021-01-28 10:00] LABS: INR 0.89 (0.87-1.13)
[2021-01-28 10:01] LABS: Partial Thromboplastin Time 27.5 Sec. (24.2-36.6)
--- NOTE | 2021-01-28 10:05 | XRay Report ---
CHEST 2 VIEWS 0925 INDICATION / CLINICAL INFORMATION: Chest Pain COMPARISON: 01/17/2021 FINDINGS: SUPPORT DEVICES: None. HEART / MEDIASTINUM: Moderate cardiomegaly is again seen LUNGS / PLEURA: The prominent bibasilar infiltrate, worse right than left, seen on prior study has al most completely cleared. There may be slight increased markings in the right base remaining but these are only minimal. No pleural effusion is seen. No left-sided infiltrate is noted. No pneumothorax. ADDITIONAL FINDINGS: No significant additional findings. IMPRESSION: Marked improvement Signer Name: Avery Monreal MD Signed: 01/28/2021 10:01 AM Workstation Name: [id number]
--- NOTE | 2021-01-28 10:36 | Electrocardiograph Report ---
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 Q waves now present T-wave abnormality now present Early repolarization no longer present Myocardial infarct finding no longer present Electronically Signed On 01-28-2021 10:35:59 EDT by Edwardo Campa
[2021-01-28 11:08] VITALS: BP 164/89
[2021-01-28 14:18] LABS: Total Cells Counted 100
[2021-01-28 14:19] LABS: Platelet Estimate Consistent w Auto; RBC Morphology Normal
== END 2021-01-28 11:16 | disposition home or self-care (01) ==
LOC: ED 07:58
DX: I16.0 Hypertensive urgency (principal); I11.0 Hypertensive heart disease with heart failure; I50.9 Heart failure, unspecified; R42 Dizziness and giddiness; Z79.899 Other long term (current) drug therapy
CPT/HCPCS: 36415; 71046; 80053; 84484; 85007; 85025; 85610; 85730; 93005; 96374; 99284; J0360

== ENCOUNTER 2021-02-05 10:49 | Emergency (ER) | payer OTHER ==
[2021-02-05 12:42] VITALS: BP 149/101
--- NOTE | 2021-02-05 13:00 | Emergency Department Report ---
Chief Complaint: High BP Stated Complaint: BP CHECK Time Seen by Provider: 02/05/21 12:33 - HPI History of Present Illness: 55-year-old -[place] male patient presents for blood pressure check today. Patient was admitted here to the hospital a few weeks ago and was newly diagnosed with CHF. 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 Campa, yesterday, however the computer system at the doctor's office was down and he was not able to be seen. Patient denies any complaints today including chest pain, shortness of breath, extremity swelling, headache, or dizziness. He states that he just wanted to make sure that everything was okay given that he was unable to be seen yesterday by his doctor. Patient does report compliance with his blood pressure medications and Lasix. - Exam Vital Signs: Vital Signs 02/05/21 02/05/21 11:15 12:40 Temperature 98.4 F Pulse Rate 86 Respiratory 20 Rate Blood Pressure 149/101 Blood Pressure 173/111 [Right] O2 Sat by Pulse 100 Oximetry MSE screening note: Focused history and physical exam performed. Due to findings the following was ordered: ED Medical Decision Making - Medical Decision Making 55-year-old -[place] male patient presents for blood pressure check today. Patient was admitted here to the hospital a few weeks ago and was newly diagnosed with CHF. 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 Campa, yesterday, however the computer system at the doctor's office was down and he was not able to be seen. Patient denies any complaints today including chest pain, shortness of breath, extremity swelling, headache, or dizziness. He states that he just wanted to make sure that everything was okay given that he was unable to be seen yesterday by his doctor. Patient does report compliance with his blood pressure medications and Lasix. Patient appears well and continues to deny any symptoms. Recommend patient follows up with his primary care physician and his maintenance mechanic engine. Patient stable for discharge home. Discussed signs and symptoms that should prompt immediate return to the emergency department in detail patient verbalized understanding. ED Disposition for MSE Clinical Impression: Blood pressure check Disposition: TO HOME OR SELFCARE Condition: Stable Additional Instructions: fluticasone (flonase) or nasonex Referrals: [facility] [Provider Group] - 3-5 Days PRIMARY CARE,MD [Primary Care Provider] - 3-5 Days ED Physical Exam - General Limitations: No Limitations General appearance: alert, in no apparent distress - Head Head exam: Present: atraumatic, normocephalic - Eye Eye exam: Present: normal appearance - Respiratory Respiratory exam: Present: normal lung sounds bilaterally. Absent: respiratory distress - Cardiovascular Cardiovascular Exam: Present: regular rate, normal rhythm - Extremities Exam Extremities exam: Absent: other (No edema noted in extremities bilaterally) - Neurological Exam Neurological exam: Present: alert, oriented X3 - Psychiatric Psychiatric exam: Present: normal affect, normal mood - Skin Skin exam: Present: warm, dry, intact, normal color. Absent: rash, cyanosis, diaphoretic ED Review of Systems ROS: Stated complaint: BP CHECK Other details as noted in HPI Constitutional: denies: chills, diaphoresis, fever, malaise, weakness Respiratory: denies: cough, shortness of breath Cardiovascular: denies: chest pain Gastrointestinal: denies: abdominal pain, other (No swelling) Neurological: denies: headache, weakness
== END 2021-02-05 13:09 | disposition home or self-care (01) ==
LOC: ED 10:49
DX: Z01.30 Encounter for examination of blood pressure without abnormal findings (principal)
CPT/HCPCS: 99281